=== PATIENT | male | born 1940 | race Caucasian/White ===

== ENCOUNTER 2018-10-17 17:46 | Observation (INO) | payer OTHER ==
[2018-10-17 19:26] LABS: Absolute Lymphocytes (CBC) 1.2 K/uL (0.7-4.9); Absolute Monocytes 0.5 K/uL (0.1-1.3); Absolute Neutrophil 5.4 K/uL (1.8-8.0); Basophils % 0.6 % (0-1.3); Eosinophils % 1.4 % (0-4.4); Hematocrit 43.9 % (39.6-49.0); Lymphocytes % 16.3 % (15.3-44.8); MPV 8.8 fL (7.6-11.3); Monocytes % 7.4 % (3.3-12.3)
[2018-10-17] MEDS ORDERED: NA CHLORIDE 0.9% 1,000 ML ONE (19:27)
[2018-10-17 19:34] LABS: Protime INR 0.99
[2018-10-17 19:56] LABS: ALT/SGPT 23 U/L (12-78); AST/SGOT 18 U/L (15-37); Alkaline Phosphatase 96 U/L (45-117); BUN Blood Urea Nitrogen 28 mg/dL (7-18); Bicarbonate 29 mmol/L (21-32); Bilirubin Direct 0.1 mg/dL (0-0.2); Bilirubin Total 0.4 mg/dL (0.2-1.0); Glucose Level 88 mg/dL (74-106); Lipase 93 U/L (73-393); Magnesium 2.2 mg/dL (1.8-2.4); NT PRO-BNP 66 pg/mL (<450); Potassium 3.7 mmol/L (3.5-5.1); Protein, Total 6.9 g/dL (6.4-8.2); Sodium Level 142 mmol/L (136-145); Troponin (Emerg Dept Use Only) < 0.02 ng/mL (0.0-0.045)
--- NOTE | 2018-10-17 20:04 | ER ---
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 Transition of hb care: patient was not received from another setting of care. Onset of symptoms was October 17, 2018. Risk Assessment: Do you want to hurt yourself or someone else? Patient reports no desire to harm self or others. Care prior to arrival: None. 17:57 Method Of Arrival: Ambulatory 17:57 Acuity: EDY 3 hb 18:53 Initial Sepsis Screen: Does the patient meet any 2 criteria? No. Patient's initial tw2 sepsis screen is negative. Does the patient have a suspected source of infection? No. Patient's initial sepsis screen is negative. Historical: - Allergies: 17:56 No Known Allergies; hb - Home Meds: 17:56 Diltiazem Oral [Active]; Diovan Oral [Active]; Demadex Oral [Active]; Protonix Oral hb [Active]; ezetimibe oral oral [Active]; Flunisolide Nasal [Active]; Bentyl Oral [Active]; Viagra Oral [Active]; Aspirin Oral [Active]; - PMHx: 17:56 Hypertension; Seasonal Allergies; hb - PSHx: 17:56 right knee; left foot; left elbow; prostatectomy; right foot; hb - Immunization history:: Adult Immunizations up to date. - Social history:: Smoking status: Patient/guardian denies using tobacco. - Ebola Screening: : No symptoms or risks identified at this time. - Family history:: not pertinent. Screenin:53 Abuse screen: Denies threats or abuse. Nutritional screening: No deficits noted. tw2 Tuberculosis screening: No symptoms or risk factors identified. Fall Risk Secondary diagnosis (15 points) impaired mobility. Assessment: 18:00 General: Appears in no apparent distress. well groomed, Behavior is calm, cooperative, tw2 appropriate for age. Pain: Denies pain. Neuro: Level of Consciousness is awake, alert, obeys commands, Oriented to person, place, time, situation. Cardiovascular: Reports chest pain, "well i thought it might be some indigestion, so i took a bentyl" Heart tones S1 S2 Patient's skin is warm and dry. Respiratory: Airway is patent Respiratory effort is even, unlabored, Respiratory pattern is regular, symmetrical, Breath sounds are clear bilaterally. GI: Abdomen is round non-distended, Bowel sounds present X 4 quads. : No signs and/or symptoms were reported regarding the genitourinary system. EENT: No signs and/or symptoms were reported regarding the EENT system. Derm: No signs and/or symptoms reported regarding the dermatologic system. Musculoskeletal: Range of motion: intact in all extremities. 18:03 General: Felicitas,Tech at bedside performing EKG at this time.. tw2 18:51 Reassessment: Patient appears in no apparent distress at this time. No changes from tw2 previously documented assessment. Patient and/or family updated on plan of care and expected duration. Pain level reassessed. Patient is alert, oriented x 3, equal unlabored respirations, skin warm/dry/pink. no orders at this time, providers aware. 19:05 General: Appears in no apparent distress. comfortable, Behavior is calm, cooperative, rr5 appropriate for age. Pain: Denies pain. Neuro: Level of Consciousness is awake, alert, obeys commands, Oriented to person, place, time, situation, Appropriate for age. Cardiovascular: Reports palpitations, episodes of Capillary refill < 3 seconds Patient's skin is warm and dry. Respiratory: Airway is patent Respiratory effort is even, unlabored, Respiratory pattern is regular, symmetrical. GI: Abdomen is round non-distended. : No signs and/or symptoms were reported regarding the genitourinary system. : No signs and/or symptoms were reported regarding the genitourinary system. EENT: No signs and/or symptoms were reported regarding the EENT system. 19:05 Derm: No signs and/or symptoms reported regarding the dermatologic system. rr5 Musculoskeletal: Capillary refill < 3 seconds, Range of motion: intact in all extremities. 20:15 Reassessment: Patient appears in no apparent distress at this time. No changes from rr5 previously documented assessment. Patient is alert, oriented x 3, equal unlabored respirations, skin warm/dry/pink. no complaints made. 21:05 Reassessment: Patient appears in no apparent distress at this time. Patient is alert, rr5 oriented x 3, equal unlabored respirations, skin warm/dry/pink. for admission. Patient denies pain at this time. Patient states symptoms have improved. 21:49 Reassessment: seen and examined by dr. akhtar at bedside. rr5 Vital Signs: 17:54 BP 182 / 89; Pulse 74; Resp 20; Temp 98.5; Pulse Ox 100% on R/A; Pain 0/10; hb 19:05 BP 131 / 65; Pulse 62; Resp 17; Temp 99.4; Pulse Ox 99% ; Pain 0/10; rr5 20:14 Weight 117.93 kg; rr5 20:14 BP 140 / 69; Pulse 60; Resp 17; Pulse Ox 98% ; rr5 21:20 BP 114 / 60; Pulse 61; Resp 17; Pulse Ox 98% ; rr5 22:00 BP 133 / 70; Pulse 63; Resp 19; Pulse Ox 99% ; rr5 23:00 BP 141 / 74; Pulse 66; Resp 17; Temp 99.3; Pulse Ox 99% ; rr5 ED Course: 17:47 Patient arrived in ED. rg4 17:47 Ruperto Cates MD is Private Physician. rg4 17:57 Triage completed. hb 17:57 Arm band placed on right wrist. hb 18:03 Gissel Bush, RN is Primary Nurse. tw2 18:35 EKG done, by ED staff, reviewed by Leonidas Chapman MD. mh5 18:36 Patient has correct armband on for positive identification. Placed in gown. Bed in low mh5 position. Call light in reach. Side rails up X 1. Adult w/ patient. Warm blanket given. electron beam machine welder setter on. Pulse ox on. NIBP on. 18:53 Leonidas Chapman MD is Attending Physician. karolina 19:03 EKG completed upon pts arrival to room, Dr. Chapman was given EKG at that time. tw2 19:14 Radiology exam delayed due to IV insertion attempt and/or patient not having az appropriate IV at this time. 19:20 Inserted saline lock: 20 gauge in left antecubital area, using aseptic technique. Blood oe collected. 19:46 XRAY Chest (1 view) In Process Unspecified. EDMS 20:03 Gen Cool MD is Hospitalizing Provider. karolina 23:23 No provider procedures requiring assistance completed. Patient admitted, IV remains in rr5 place. intact, No redness/swelling at site. Administered Medications: 19:30 Drug: NS 0.9% 1000 ml Route: IV; Rate: 125 ml/hr; Site: left antecubital; rr5 23:27 Follow up: IV Status: Infusion continued upon admission rr5 20:23 Drug: Aspirin Chewable Tablet 324 mg Route: PO; rr5 23:26 Follow up: Response: No adverse reaction rr5 20:25 Drug: ProTONIX 40 mg Route: IVP; Site: left antecubital; rr5 23:26 Follow up: Response: No adverse reaction rr5 20:27 Drug: Lovenox 1 mg/kg {Note: 100 units given.} Route: Sub-Q; Site: right lower abdomen; rr5 23:26 Follow up: Response: No adverse reaction rr5 Outcome: 20:04 Decision to Hospitalize by Provider. karolina 23:23 Admitted to Tele accompanied by tech, via stretcher, room 422, with chart, Report rr5 called to [place] 23:23 Condition: stable 23:23 Instructed on the need for admit. 23:44 Patient left the ED. rr5 Signatures: Dispatcher [employer] Leonidas Montano MD MD cha Baxter, Heather, RN RN Gissel Bush RN RN tw2 Rhianna Low rg4 Tony Hernandez Maria Zahra Faye Raymond, RN RN rr5 Corrections: (The following items were deleted from the chart) 20:34 20:27 Lovenox 1 mg/kg Sub-Q in right lower abdomen rr5 rr5
--- NOTE | 2018-10-17 20:04 | EDPHYS ---
Physician Documentation [facility] Name: Victor M Del Toro Age: 78 yrs Sex: Male : 1940 Arrival Date: 10/17/2018 Time: 17:47 Bed 19 Private MD: Ruperto Cates ED Physician Leonidas Chapman HPI: 10/17 20:00 This 78 yrs old Male presents to ER via Ambulatory with complaints of karolina Palpitations. 20:00 The patient presents with a history of irregular heart beat. Context: The symptoms karolina occur at rest. Historical: - Allergies: 17:56 No Known Allergies; hb - Home Meds: 17:56 Diltiazem Oral [Active]; Diovan Oral [Active]; Demadex Oral [Active]; Protonix Oral hb [Active]; ezetimibe oral oral [Active]; Flunisolide Nasal [Active]; Bentyl Oral [Active]; Viagra Oral [Active]; Aspirin Oral [Active]; - PMHx: 17:56 Hypertension; Seasonal Allergies; hb - PSHx: 17:56 right knee; left foot; left elbow; prostatectomy; right foot; hb - Immunization history:: Adult Immunizations up to date. - Social history:: Smoking status: Patient/guardian denies using tobacco. - Ebola Screening: : No symptoms or risks identified at this time. - Family history:: not pertinent. ROS: 20:01 Constitutional: Negative for fever, chills, and weight loss, Eyes: Negative for injury, karolina pain, redness, and discharge, ENT: Negative for injury, pain, and discharge, Neck: Negative for injury, pain, and swelling, Respiratory: Negative for shortness of breath, cough, wheezing, and pleuritic chest pain, Back: Negative for injury and pain, : Negative for injury, bleeding, discharge, and swelling, MS/Extremity: Negative for injury and deformity, Skin: Negative for injury, rash, and discoloration, Neuro: Negative for headache, weakness, numbness, tingling, and seizure, Psych: Negative for depression, anxiety, suicide ideation, homicidal ideation, and hallucinations, Allergy/Immunology: Negative for hives, rash, and allergies, Endocrine: Negative for neck swelling, polydipsia, polyuria, polyphagia, and marked weight changes, Hematologic/Lymphatic: Negative for swollen nodes, abnormal bleeding, and unusual bruising. 20:01 Cardiovascular: Positive for chest pain, palpitations. 20:01 Respiratory: Positive for shortness of breath. 20:01 Abdomen/GI: Positive for abdominal pain, of the epigastric area. Exam: 20:01 Constitutional: This is a well developed, well nourished patient who is awake, alert, karolina and in no acute distress. Head/Face: Normocephalic, atraumatic. Eyes: Pupils equal round and reactive to light, extra-ocular motions intact. Lids and lashes normal. Conjunctiva and sclera are non-icteric and not injected. Cornea within normal limits. Periorbital areas with no swelling, redness, or edema. ENT: Nares patent. No nasal discharge, no septal abnormalities noted. Tympanic membranes are normal and external auditory canals are clear. Oropharynx with no redness, swelling, or masses, exudates, or evidence of obstruction, uvula midline. Mucous membranes moist. Neck: Trachea midline, no thyromegaly or masses palpated, and no cervical lymphadenopathy. Supple, full range of motion without nuchal rigidity, or vertebral point tenderness. No Meningismus. Chest/axilla: Normal chest wall appearance and motion. Nontender with no deformity. No lesions are appreciated. Cardiovascular: Regular rate and rhythm with a normal S1 and S2. No gallops, murmurs, or rubs. Normal PMI, no JVD. No pulse deficits. Respiratory: Lungs have equal breath sounds bilaterally, clear to auscultation and percussion. No rales, rhonchi or wheezes noted. No increased work of breathing, no retractions or nasal flaring. Abdomen/GI: Soft, non-tender, with normal bowel sounds. No distension or tympany. No guarding or rebound. No evidence of tenderness throughout. Back: No spinal tenderness. No costovertebral tenderness. Full range of motion. Male : Normal genitalia with no discharge or lesions. Skin: Warm, dry with normal turgor. Normal color with no rashes, no lesions, and no evidence of cellulitis. MS/ Extremity: Pulses equal, no cyanosis. Neurovascular intact. Full, normal range of motion. Neuro: Awake and alert, GCS 15, oriented to person, place, time, and situation. Cranial nerves II-XII grossly intact. Motor strength 5/5 in all extremities. Sensory grossly intact. Cerebellar exam normal. Normal gait. Psych: Awake, alert, with orientation to person, place and time. Behavior, mood, and affect are within normal limits. Vital Signs: 17:54 BP 182 / 89; Pulse 74; Resp 20; Temp 98.5; Pulse Ox 100% on R/A; Pain 0/10; hb 19:05 BP 131 / 65; Pulse 62; Resp 17; Temp 99.4; Pulse Ox 99% ; Pain 0/10; rr5 20:14 Weight 117.93 kg; rr5 20:14 BP 140 / 69; Pulse 60; Resp 17; Pulse Ox 98% ; rr5 21:20 BP 114 / 60; Pulse 61; Resp 17; Pulse Ox 98% ; rr5 22:00 BP 133 / 70; Pulse 63; Resp 19; Pulse Ox 99% ; rr5 23:00 BP 141 / 74; Pulse 66; Resp 17; Temp 99.3; Pulse Ox 99% ; rr5 MDM: 18:54 Patient medically screened. [facility] 20:02 Data reviewed: vital signs, nurses notes, lab test result(s), EKG, radiologic studies, karolina plain films. 10/17 18:55 Order name: Basic Metabolic Panel; Complete Time: 19:59 [facility] 10/17 18:55 Order name: CBC with Diff; Complete Time: 19:59 [facility] 10/17 18:55 Order name: LFT's; Complete Time: 19:59 [facility] 10/17 18:55 Order name: Magnesium; Complete Time: 19:59 [facility] 10/17 18:55 Order name: NT PRO-BNP; Complete Time: 19:59 [facility] 10/17 18:55 Order name: PT-INR; Complete Time: 19:59 [facility] 10/17 18:55 Order name: Troponin (emerg Dept Use Only); Complete Time: 19:59 [facility] 10/17 18:55 Order name: XRAY Chest (1 view) [facility] 10/17 18:55 Order name: TSH; Complete Time: 19:59 [facility] 10/17 18:55 Order name: Urine Culture [facility] 10/17 18:55 Order name: Lipase; Complete Time: 19:59 [facility] 10/17 23:22 Order name: Urine Dipstick--Ancillary (enter results) ar5 10/17 23:33 Order name: Urine Dipstick-Ancillary EDMS 10/17 18:55 Order name: EKG; Complete Time: 18:56 [facility] 10/17 18:55 Order name: Cardiac monitoring; Complete Time: 19:45 [facility] 10/17 18:55 Order name: EKG - Nurse/Tech; Complete Time: 19:56 [facility] 10/17 18:55 Order name: IV Saline Lock; Complete Time: 19:43 [facility] 10/17 18:55 Order name: Labs collected and sent; Complete Time: 19:44 [facility] 10/17 18:55 Order name: O2 Per Protocol; Complete Time: 19:56 [facility] 10/17 18:55 Order name: O2 Sat Monitoring; Complete Time: 19:45 [facility] 10/17 18:55 Order name: Urine Dipstick-Ancillary (obtain specimen); Complete Time: 19:55 [facility] Administered Medications: 19:30 Drug: NS 0.9% 1000 ml Route: IV; Rate: 125 ml/hr; Site: left antecubital; rr5 23:27 Follow up: IV Status: Infusion continued upon admission rr5 20:23 Drug: Aspirin Chewable Tablet 324 mg Route: PO; rr5 23:26 Follow up: Response: No adverse reaction rr5 20:25 Drug: ProTONIX 40 mg Route: IVP; Site: left antecubital; rr5 23:26 Follow up: Response: No adverse reaction rr5 20:27 Drug: Lovenox 1 mg/kg {Note: 100 units given.} Route: Sub-Q; Site: right lower abdomen; rr5 23:26 Follow up: Response: No adverse reaction rr5 Disposition: 10/17/18 20:04 Hospitalization ordered by Gen Cool for Observation. Preliminary diagnosis are Palpitations, Chest pain, unspecified, Functional dyspepsia, Unspecified kidney failure. - Bed requested for Telemetry/MedSurg (observation). - Status is Observation. rr5 - Condition is Stable. - Problem is new. - Symptoms have improved. UTI on Admission? No Signatures: Dispatcher [employer] EDND Yanet Pugh RN RN mw Anderson, Corey, MD MD cha Baxter, Heather, RN RN hb Roque, Raymond, RN RN rr5 Corrections: (The following items were deleted from the chart) 22:07 20:04 Hospitalization Ordered by Gen Cool MD for Observation. Preliminary mw diagnosis is Palpitations; Chest pain, unspecified; Functional dyspepsia; Unspecified kidney failure. Bed requested for Telemetry/MedSurg (observation). Status is Observation. Condition is Stable. Problem is new. Symptoms have improved. UTI on Admission? No. karolina 23:44 22:07 10/17/2018 20:04 Hospitalization Ordered by Gen Cool MD for Observation. rr5 Preliminary diagnosis is Palpitations; Chest pain, unspecified; Functional dyspepsia; Unspecified kidney failure. Bed requested for Telemetry/MedSurg (observation). Status is Observation. Condition is Stable. Problem is new. Symptoms have improved. UTI on Admission? No. mw
--- NOTE | 2018-10-17 20:05 | RAD REPORT ---
EXAM DESCRIPTION: Bhakti Single View10/17/2018 7:45 pm CLINICAL HISTORY: Chest pain COMPARISON: 2013 FINDINGS: The lungs appear clear of acute infiltrate. The heart is normal size IMPRESSION: No acute abnormalities displayed
[2018-10-17] MEDS ORDERED: ENOXAPARIN 100 MG/ML SYR SQ ONE (20:29)
[2018-10-17] MEDS ORDERED: PANTOPRAZOLE 40 MG INJ ONE (20:29)
[2018-10-17] MEDS ORDERED: ASPIRIN 81 MG CHEWABLE TABLET ONE (20:29)
--- NOTE | 2018-10-17 22:08 | P.HP ---
Certification for Inpatient Patient admitted to: Observation With expected LOS: <2 Midnights Practitioner: I am a practitioner with admitting privileges, knowledge of patient current condition, hospital course, and medical plan of care. Services: Services provided to patient in accordance with Admission requirements found in Title 42 Section 412.3 of the Code of Federal Regulations Patient History Date of Service: 10/17/18 Reason for admission: chest pain History of Present Illness: Mr Del Toro is a 78 years old male with history of HTN, GERD, came to ED complaining of chest pain, starting this morning, getting worse after lunch, radiated to epigastric area, constant, dull, associated with SOB, no nausea or vomiting, no diaphoresis. The patient had a cardiac work up on 2013, including a cath which showed normal coronary arteries. At my encounter, he was on non- distress, still having mild epigastric pain. He also said that at lungh got a soup that was spice, and after that his pain got worse. Initial trop I negative , EKG shows no acute ST-T abnormalities. Allergies Tetanus Vaccines and Toxoid [Tetanus Vaccines & Toxoid] Allergy (Verified 18:06) Anaphylaxis Home medications list reviewed: Yes Home Medications: Aspirin 325 mg PO BEDTIME 03/15/14 Cetirizine HCl [Zyrtec] 10 mg PO DAILY 03/15/14 Dicyclomine HCl [Bentyl] 20 mg PO PRN PRN 03/15/14 Diltiazem HCl [Dilt-Xr] 180 mg PO DAILY 03/15/14 Diphenhydramine [Benadryl*] 2 tab PO BEDTIME 03/15/14 Flunisolide [Nasarel] 1 spray NS DAILY 03/15/14 [place] Eyes 1 tab PO BID 03/15/14 Multivit-Min/FA/Lycopene/Lut [Centrum Silver Tablet] 1 tab PO DAILY 03/15/14 Niacin [Slo-Niacin] 1,000 mg PO BEDTIME 03/15/14 [place]-3 Fatty Acids/Fish Oil [Fish Oil 1,000 mg Softgel] 1 each PO DAILY Pantoprazole Sodium [Protonix] 40 mg PO DAILY 03/15/14 Sildenafil Citrate [Viagra] 100 mg PO PRN 03/15/14 Torsemide [Demadex*] 20 mg PO DAILY 03/15/14 Valsartan [Diovan*] 160 mg PO DAILY 03/15/14 Pantoprazole [Protonix Tab*] 40 mg PO BID #0 tab 03/18/14 - Past Medical/Surgical History Diabetic: No -: htn -: high cholesterol -: prostate ca -: allergies -: total right knee -: left elbow sx -: bilat foot sx -: prostatectomy - Family History Family History: Reviewed- Non-Contributory - Social History Alcohol use: Yes CD- Drugs: No Caffeine use: Yes Place of Residence: Home Review of Systems 10-point ROS is otherwise unremarkable Physical Examination - Physical Exam General: Alert, In no apparent distress HEENT: Atraumatic, PERRLA, Mucous membr. moist/pink, EOMI, Sclerae nonicteric Neck: Supple, 2+ carotid pulse no bruit, No LAD, Without JVD or thyroid abnormality Respiratory: Clear to auscultation bilaterally, Normal air movement Cardiovascular: Regular rate/rhythm, Normal S1 S2 Gastrointestinal: Normal bowel sounds, No tenderness Musculoskeletal: No tenderness Integumentary: No rashes Neurological: Normal speech, Normal strength at 5/5 x4 extr, Normal tone, Normal affect Lymphatics: No axilla or inguinal lymphadenopathy - Studies Laboratory Data (last 24 hrs) 10/17/18 19:16: PT 11.7, INR 0.99 10/17/18 19:16: WBC 7.2, Hgb 14.7, Hct 43.9, Plt Count 195 10/17/18 19:16: Sodium 142, Potassium 3.7, BUN 28 H, Creatinine 1.38 H, Glucose 88, Magnesium 2.2, Total Bilirubin 0.4, AST 18, ALT 23, Alkaline Phosphatase 96 , Lipase 93 Assessment and Plan - Problems (Diagnosis) (1) HTN (hypertension) Current Visit: Yes Status: Acute Qualifiers: Hypertension type: essential hypertension Qualified Code(s): I10 - Essential (primary) hypertension (2) GERD (gastroesophageal reflux disease) Current Visit: Yes Status: Acute Qualifiers: Esophagitis presence: esophagitis presence not specified Qualified Code(s) : K21.9 - Gastro-esophageal reflux disease without esophagitis (3) Chest pain Current Visit: No Status: Acute Qualifiers: Chest pain type: unspecified Qualified Code(s): R07.9 - Chest pain, unspecified - Plan Will admit the patient under observation due to atypical chest pain. Differential diagnosis include GERD due to clinical presentation. Will order serial trop I, and EKG, ECHO. Will consult cardiology for evaluation and recommendations. - Advance Directives Does patient have a Living Will: No Does patient have a Durable POA for Healthcare: Yes - Code Status/Comfort Care Code Status Assessed: Yes Code Status: Full Code
[2018-10-17 23:32] LABS: Urine Blood TRACE (NEG); Urine Glucose NEGATIVE (NEG); Urine Protein NEGATIVE (NEG); Urine Specific Gravity 1.025 (1.005-1.030); Urine pH 5.5 (5.0-7.0)
[2018-10-17] MEDS ORDERED: SODIUM CHLORIDE 0.9% 10ML INJ IV PRN (23:38)
[2018-10-17] MEDS ORDERED: ACETAMINOPHEN 500 MG TAB PO PRN (23:38)
[2018-10-18 00:01] LABS: Absolute Monocytes 0.4 K/uL (0.1-1.3); Absolute Neutrophil 4.2 K/uL (1.8-8.0); Basophils % 0.9 % (0-1.3); Eosinophils % 1.5 % (0-4.4); Lymphocytes % 29.4 % (15.3-44.8); MPV 9.2 fL (7.6-11.3); Monocytes % 6.4 % (3.3-12.3); RBC Red Blood Cell Count 5.02 M/uL (4.33-5.43)
[2018-10-18 00:18] LABS: BUN Blood Urea Nitrogen 27 mg/dL (7-18); Bicarbonate 22 mmol/L (21-32); Glucose Level 100 mg/dL (74-106); HDL Cholesterol 41 mg/dL (40-60); LDL Cholesterol, Calculated 131 (<130); Potassium 3.6 mmol/L (3.5-5.1); Sodium Level 144 mmol/L (136-145); Troponin I < 0.02 ng/mL (0.0-0.045)
[2018-10-18 00:39] VITALS: O2SAT 99; BMI 38.4
--- NOTE | 2018-10-18 07:49 | EKG ---
Test Date: 2018-10-17 Test Time: 18:06:55 Credit Rating Checker: JERMAINE MEASUREMENT RESULTS: Intervals: Rate: 63 CA: 184 QRSD: 94 QT: 424 QTc: 433 Spring: P: 37 CA: 184 QRS: 8 T: 27 INTERPRETIVE STATEMENTS: Normal sinus rhythm Normal ECG Compared to ECG 03/16/2014 07:41:57 Sinus bradycardia no longer present Electronically Signed On 10-18-18 07:48:30 TECHNICAL SERVICES COORDINATOR by Sarabjit Webb
[2018-10-18] MEDS ORDERED: PANTOPRAZOLE 40 MG INJ IVP SCH (09:00)
[2018-10-18] MEDS ORDERED: ASPIRIN EC 81 MG TAB PO SCH (09:00)
[2018-10-18] MEDS ORDERED: ENOXAPARIN 40 MG/0.4 ML SQ SCH (09:00)
[2018-10-18] MEDS ORDERED: DICYCLOMINE HCL 20 MG PO PRN (11:04)
[2018-10-18] MEDS ORDERED: SILDENAFIL CITRATE 100 MG PO SCH (11:15)
--- NOTE | 2018-10-18 11:46 | ECHO ---
HEIGHT: 5 ft 9 in WEIGHT: 260 lb 4.8 oz DATE OF STUDY: 10/18/[address]: Gen Hernandez MD 2-DIMENSIONAL: YES M.MODE: YES DOPPLER: YES COLOR FLOW: YES TDS: NO PORTABLE: NO DEFINITY: NO BUBBLE STUDY: NO DIAGNOSIS: CHEST PAIN CARDIAC HISTORY: CATHERIZATION: NO SURGERY: NO PROSTHETIC VALVE: NO PACEMAKER: NO MEASUREMENTS (cm) DIASTOLIC (NORMALS) SYSTOLIC (NORMALS) IVSd 1.1 (0.6-1.2) LA Diam 4.0 (1.9-4.0) LVEF 63% LVIDd 4.9 (3.5-5.7) LVIDs 3.2 (2.0-3.5) %FS 34% LVPWd 1.2 (0.6-1.2) Ao Diam 3.2 (2.0-3.7) 2 DIMENSIONAL ASSESSMENT: RIGHT ATRIUM: NORMAL LEFT ATRIUM: NORMAL RIGHT VENTRICLE: NORMAL LEFT VENTRICLE: NORMAL TRICUSPID VALVE: NORMAL MITRAL VALVE: NORMAL PULMONIC VALVE: NORMAL AORTIC VALVE: NORMAL PERICARDIAL EFFUSION: NONE AORTIC ROOT: NORMAL LEFT VENTRICULAR WALL MOTION: NORMAL DOPPLER/COLOR FLOW: TRACE MITRAL AND AORTIC REGURGITATION. COMMENTS: NORMAL 2D ECHOCARDIOGRAM. TRACE MITRAL AND AORTIC REGURGITATION. TECHNOLOGIST: Amelia GOODSON
[2018-10-18 12:48] VITALS: BP 120/65; TEMP 98.4
--- NOTE | 2018-10-18 16:05 | CON ---
Chief Complaint: Palpitations. History Of Present Illness: Mr. Del Toro was in his usual state of health. He recalls eating some s picy food, feeling nauseated, and then the next day he noticed, as he sat still, he felt his heart fl uttering. He put himself on some kind of a monitor that monitors O2 saturation and it said his heart rate was fluctuating a lot. Apparently, the highest it got was in the high 90s and the lowest in th e 50s, but it was changing rapidly. All of that was gone by the time he got to the emergency room. Now, he feels fine. Since he has been in the hospital, he has had normal cardiac enzymes, normal blo od tests. Mr. Del Toro has dyslipidemia and hypertension. We were concerned, he had a coronary hear t disease, but had a cardiac cath that was just a few years ago that was normal. He was in February 2014 . Medications: Outpatient medications have been Benadryl, aspirin, fish oil, multivitamins, cetirizine , Viagra, dicyclomine, Protonix, Desyrel, valsartan, torsemide, diltiazem, and ezetimibe. He is intolerant to statin drugs, but he has good cholesterol control on ezetimibe. Social History: He uses no tobacco. Physical Examination: General: 5 feet 9 inches, 260 pounds. Lungs: Clear. Neck: Carotids, no bruit. Heart: Within normal limits. Extremities: Normal. Diagnostic Data: His EKG does not show infarction, injury, or ischemia. He is in normal sinus rhyth m. Impression: The patient had some kind of an arrhythmia, but may have been frequent premature ventric ular contractions that have been atrial fibrillation. I think at this point, we are unlikely to see it again just by holding onto him, so I would recommend he be discharged and put an event monitor on. If that fails to demonstrate the arrhythmia and he has recurrent arrhythmia, we could consider impl anting a the LINQ device to monitor his rhythm for 2 years. I am suspicious he has atrial fibrillati on, but we have no proof, so I would not be able to safely give anticoagulation or antiarrhythmic butch gs at this point. RADU/LOW Voice ID: [id number] Report ID: [id number]
[2018-10-18] MEDS ORDERED: EZETIMIBE 10 MG TAB PO SCH (21:00)
--- NOTE | 2018-10-19 01:30 | DS ---
Date of Discharge: 10/18/2018 [place] Mold Maker: Dr. Webb with Cardiology. Discharge Diagnoses: 1.Chest pain. Acute coronary syndrome ruled out. 2.Essential hypertension, stable. 3.Gastroesophageal reflux disease without esophagitis. 4.Mixed hyperlipidemia. 5.History of prostate cancer. 6.Obesity, body mass index 38. Hospital Course: The patient is a 78-year-old male who comes in due to chest pain. The patient does report some recent stress. Also reports making soup that was very spicy and having multiple episode s of acid reflux. The patient came in to the ER for further evaluation. He was admitted to rule out acute coronary syndrome. Cardiac enzymes were negative x3. His EKG did not show any significant ch nguyen. No ST elevation. Echocardiogram showed EF of 63%. There was trace mitral and aortic regurgit ation. The patient was seen by Dr. Webb who cleared the patient for discharge. The patient was th en discharged home in a stable condition. Activity: As tolerated. Medications: As per medication reconciliation list. Followup: Follow up with primary care physician in 2 to 3 days. Follow up with client support coordinator, Dr. Bennett perez, in 1 week for Holter monitor placement. Return to ER for worsening condition. Diet: Heart healthy. Physical Examination: General: Awake, alert, and oriented x3. No acute distress. Elderly male, obese. CV: S1, S2. Regular rate and rhythm. Peripheral pulses present. Respiratory: Moving air well bilaterally. No wheezing. Gastrointestinal: Abdomen is soft, nontender, nondistended. Positive bowel sounds. Extremities: No clubbing, cyanosis, or edema. Neurologic: Nonfocal. SA/MODL Voice ID: [id number] Report ID: [id number]
[2018-10-19] MEDS ORDERED: CETIRIZINE HCL 5 MG TABLET PO SCH (09:00)
[2018-10-19] MEDS ORDERED: FLUNISOLIDE NS SCH (09:00)
[2018-10-19] MEDS ORDERED: VALSARTAN 80 MG TAB PO SCH (09:00)
[2018-10-19] MEDS ORDERED: DILTIAZEM HCL 180 MG SR CAP PO SCH (09:00)
[2018-10-19] MEDS ORDERED: TORSEMIDE 20 MG TAB PO SCH (09:00)
== END 2018-10-18 13:58 | disposition home or self-care (01) ==
LOC: ER 17:46 → ERHOLD 22:00 → 4TH 23:24
PROVIDERS: ADMIT Internal Medicine; ATTEND Internal Medicine
DX: R07.9 Chest pain, unspecified (principal); I10 Essential (primary) hypertension; K21.9 Gastro-esophageal reflux disease without esophagitis; E78.2 Mixed hyperlipidemia; Z85.46 Personal history of malignant neoplasm of prostate; E66.9 Obesity, unspecified; Z68.38 Body mass index [BMI] 38.0-38.9, adult; Z88.7 Allergy status to serum and vaccine
CPT/HCPCS: 36415; 71045; 80048 ×2; 80061; 80076; 81003; 83690; 83735; 83880; 84443; 84484 ×3; 85025 ×2; 85610; 87086; 87088; 93005; 93306; 96361; 96372; 96374; 99285; C9113 ×2; G0378; G0379; J1650 ×2; J7030

== ENCOUNTER 2020-07-12 14:03 | Emergency (ER) | payer OTHER ==
--- OUTSIDE RECORDS SUMMARY | 2020-07-12 14:06 | XMS REPORT | Summary of Care ---
:1940 Author Organization [facility] [place] [address] Care Team Providers Name Role Phone MD Darryn Primary Care Provider Reason for Visit Reason Comments Skin Check Encounter Details Date Type Department Care Team Description 06/05/2020 Office Visit [facility] Stewart Jeter i, MD Skin Check Dermatology 1975 [address] 1975 [address] [facility] [address] [place] [address] [place] [address] [phone] Allergies No Known Allergiesdocumented as of this encounter (statuses as of 06/05/2020) Medications Medication Sig Dispensed Refills Start Date End Date Status sildenafil citrate Use as directed. 20 Tab 3 12/14/2010 Active (VIAGRA) 100 MG tablet valsartan (DIOVAN) 160 Take 160 mg by 0 Active MG tablet mouth daily. torsemide (DEMADEX) 20 Take 20 mg by 0 Active MG tablet mouth daily. Pantoprazole Sodium Take by mouth. 0 Active (PROTONIX) 40 MG PACK flunisolide (NASALIDE) Inhale 2 Sprays 0 Active 25 MCG/ACT (0.025%) by nose every 12 nasal spray hours. diltiazem (CARDIZEM CD) TAKE ONE CAPSULE 3 7 Active 180 MG ER capsule BY MOUTH EVERY DAY dicyclomine (BENTYL) 20 Take 20 mg by 0 Active MG tablet mouth every 6 hours. cetirizine,ZYRTEC, Take 10 mg by 0 Active (ZYRTEC ALLERGY) 10 MG mouth once. tablet Multiple Take by mouth. 0 Acti ve Vitamins-Minerals (CENTRUM SILVER) TABS Harmony-3 Fatty Acids Take by mouth. 0 Active (FISH OIL) 1000 MG CAPS Aspirin (ASPIR-81) 81 Take by mouth. 0 Active MG TBEC diphenhydrAMINE Take 25 mg by 0 Active (BENADRYL) 25 MG tablet mouth every 6 hours as needed for Sleep. ketoconazole (NIZORAL) Apply topically 60 g 3 06/21/2018 Active 2 % creamIndications: twice a day as Dermatitis seborrheica needed documented as of this encounter (statuses as of 06/05/2020) Active Problems Problem Noted Date Prostate cancer (HCCode) 06/21/2011 documented as of this encounter (statuses as of 06/05/2020) Social History Tobacco Use Types Packs/Day Years Used Date Former Smoker Cigarettes Smokeless Tobacco: Never Used Comments: pt. quit 39 yrs. ago Alcohol Use Drinks/Week oz/Week Comments Yes Sex Assigned at Date Recorded Not on file COVID-19 Exposure Response Date Recorded In the last month, have you been in contact with No / Unsure 06/02/2020 11:38 AM CDT someone who was confirmed or suspected to have Coronavirus / COVID-19? documented as of this encounter Last Filed Vital Signs Vital Sign Reading Time Taken Comments Blood Pressure 146/71 06/05/2020 3:16 PM CDT Pulse 65 06/05/2020 3:16 PM CDT Temperature - - Respiratory Rate - - Oxygen Saturation - - Inhaled Oxygen Concentration - - Weight 102.1 kg (225 lb) 06/05/2020 3:16 PM CDT Height 175.3 cm (5' 9") 06/05/2020 3:16 PM CDT Body Mass Index 33.23 06/05/2020 3:16 PM CDT documented in this encounter Progress Notes Stewart Soto MD - 06/05/2020 3:30 PM CDT Name: Victor M Del Toro Date: 06/05/20 Chief Complaint: Chief Complaint Patient presents with Skin Check HPI: Victor M Del Toro is a 79 y.o. male who presents for skin check. He has a lesion on his right cheek that itches without bleeding or pain. The patient otherwise denies any other skin-related concerns anddenies any other new or changing or concerning skin lesions. PMH: No personal history of skin cancer [place] Mildly dysplastic nevus FH: Positive for family history of skin cancer: brother (unsure of the type) Medications: Current Outpatient Medications: Aspirin (ASPIR-81) 81 MG TBEC, Take by mouth., Disp: , Rfl: cetirizine,ZYRTEC, (ZYRTEC ALLERGY) 10 MG tablet, Take 10 mg by mouth once., Disp: , Rfl: dicyclomine (BENTYL) 20 MG tablet, Take 20 mg by mouth every 6 hours., Disp: , Rfl: diltiazem (CARDIZEM CD) 180 MG ER capsule, TAKE ONE CAPSULE BY MOUTH EVERY DAY, Disp: , Rfl: 3 diphenhydrAMINE (BENADRYL) 25 MG tablet, Take 25 mg by mouth every 6 hours as needed for Sleep., Disp: , Rfl: flunisolide (NASALIDE) 25 MCG/ACT (0.025%) nasal spray, Inhale 2 Sprays by nose every 12 hours., Disp: , Rfl: ketoconazole (NIZORAL) 2 % cream, Apply topically twice a day as needed, Disp: 60 g, Rfl: 3 Multiple Vitamins-Minerals (CENTRUM SILVER) TABS, Take by mouth., Disp: , Rfl: Harmony-3 Fatty Acids (FISH OIL) 1000 MG CAPS, Take by mouth., Disp: , Rfl: Pantoprazole Sodium (PROTONIX) 40 MG PACK, Take by mouth., Disp: , Rfl: sildenafil citrate (VIAGRA) 100 MG tablet, Use as directed., Disp: 20 Tab, Rfl: 3 torsemide (DEMADEX) 20 MG tablet, Take 20 mg by mouth daily., Disp: , Rfl: valsartan (DIOVAN) 160 MG tablet, Take 160 mg by mouth daily., Disp: , Rfl: ROS: Constitutional: (negative) for fevers, (negative) for chills Skin: (negative) for rash, (negative) for pruritus Physical Exam: Vitals: Blood pressure 146/71, pulse 65, height 5' 9" (1.753 m), weight 225 lb (102.1 kg). Constitutional: well developed, well nourished, not diaphoretic, not distressed HEENT: normocephalic, atraumatic Neurologic: alert and oriented. Normal mood and affect. Skin: warm and dry Right posterior shoulder: two toned brown macule with peripheral hypopigmentation and scar like appearance Rough macules on cheeks and forehead Stuck-on papules on cheeks Healed scar on lower back General skin exam was performed including skin exam of scalp, neck, face, back, chest, abdomen, bilateral arms, forearms, hands, thighs, legs, feet, soles (patient deferred skin exam of buttocks, inguinal folds, genital area). Assessment and Plan: 1. Neoplasm of uncertain behavior of skin (right posterior shoulder): atypical nevus, rule out melanoma - The findings were discussed with the patient. A skin biopsy was recommended for further evaluationand the patient agreed to proceed. Risks, including scarring, infection, and bleeding were discussed. The patient provided informed written consent. Time-out was performed to confirm the correct patient, procedure, and site. The biopsy site was wiped with alcohol and anesthestized with lidocaine with epinephrine. A tangential biopsy was performed and hemostasis was achieved using aluminum chloride. Dressing was applied. Wound care instructions were discussed with the patient and written instructionswere provided. The patient tolerated the procedure well. The patient will be notified of the pathology results. 2. Actinic keratosis (face) - I discussed with patient that actinic keratoses are pre-cancerous skin lesions and a certain smallpercentage may progress to non-melanoma skin cancers. I recommended treatment of actinic keratoses for this reason. Treatment options discussed. Given the limited number of lesions, and after discussing the risks and benefits, will proceed with liquid nitrogen cryotherapy. - Cryotherapy was performed using [id number] cycle on 9 lesions. Prior to cryotherapy, the risks including pain, erythema, swelling, blistering, crusting, scarring, and discoloration were discussed with the patient, who verbalized understanding. The patient tolerated the procedure well. 3. Seborrheic keratosis - This is benign appearing. Reassurance provided. 4. History of dysplastic nevus - No evidence of recurrence. - I recommended regular self skin exams and follow up in clinic with any concerning lesions. Return to clinic in 12 months or sooner as needed. Stewart Soto MD We are following the [facility] Board of Medical Examiners guideline in safely seeing patient during the COVID-19 Pandemic, which include: 1. A mask must be worn by both the patient and physician or the physicians delegate when in proximity of the patient (meaning less than a 6-foot distance between the patient and the physician or thephysicians delegate); 2. Everyone must follow policies that the physician, medical and healthcare practice, or facility has in place regarding COVID-19 screening and testing and/or screening patients; 3. Before any patient encounter, patients must be screened for potential symptoms of COVID-19 or verified they were previously screened within last 20 days; and 4. That any medical procedure or surgery involving the mucous membranes, including the respiratory tract, with a high risk of aerosol transmission, the minimum safety equipment used by a physician or physicians delegate should include N95 masks or an equivalent protection from aerosolized particlesand face wiley documented in this encounter Plan of Treatment Name Type Priority Associated Diagnoses Order S chedule MS TANGENTIAL BIOPSY MS Charge Routine Neoplasm of uncertai n Ordered: 06/05/2020 SKIN SINGLE LESION behavior of skin MS DESTRUC MS Charge Routine Actinic keratosis Ordered: 1 PREMALIGNANT, FIRST LESION(81651) MS DESTRUC MS Charge Routine Actinic keratosis Ordered: 1 PREMALIGNANT,2-14 LESIONS(86694) Health Maintenance Due Date Last Done Comments TETANUS SHOT (ADULT) 1956 BMI FOLLOW UP PLAN 1959 HEPATITIS C SCREENING 1959 ZOSTER VACCINE (1 of 2) 1991 FALL SCREEN 2006 PNEUMOVAX >=65 (PPSV23) 2006 MEDICARE AWV (Initial) 08/29/2013 FLU VACCINE > 6 MONTHS 03/29/2020 documented as of this encounter Results Not on filedocumented in this encounter Visit Diagnoses Diagnosis Neoplasm of uncertain behavior of skin - Primary Actinic keratosis Seborrheic keratosis Other seborrheic keratosis History of dysplastic nevus Personal history of diseases of skin and subcutaneous tissue documented in this encounter Insurance Payer Benefit Plan / Subscriber ID Effective Dates Phone Addre ss Type Group [employer]AN PPO [id number] 2013-Present [id number] [place] [address] documented as of this encounter
--- NOTE | 2020-07-12 15:20 | RAD REPORT ---
EXAM DESCRIPTION: CT - Head Brain Wo Cont - 07/12/2020 3:12 pm CLINICAL HISTORY: Headache COMPARISON: None. TECHNIQUE: Computed axial tomography of the head was obtained. IV contrast was not requested. All CT scans are performed using dose optimization technique as appropriate and may include automated exposure control or mA/KV adjustment according to patient size. FINDINGS: An intracranial bleed is not seen . The ventricles are normal in caliber. No extra-axial fluid collection is noted. Fluid within the sinuses/ mastoids is not seen. IMPRESSION: No acute intracranial abnormality is seen. If patient's symptoms persist MRI of the bra in would be recommended.
--- NOTE | 2020-07-12 15:51 | RAD REPORT ---
EXAM DESCRIPTION: Bhakti Single View07/12/2020 3:36 pm CLINICAL HISTORY: Hypertension COMPARISON: 2018 FINDINGS: The lungs appear clear of acute infiltrate. The heart is borderline enlarged IMPRESSION: No acute abnormalities displayed
[2020-07-12 15:59] LABS: Absolute Lymphocytes (CBC) 1.2 K/uL (0.7-4.9); Basophils % 0.5 % (0-1.3); Hematocrit 42.7 % (39.6-49.0); Lymphocytes % 20.2 % (15.3-44.8); MPV 8.8 fL (7.6-11.3); Protime INR 0.93; RBC Red Blood Cell Count 4.94 M/uL (4.33-5.43)
[2020-07-12 16:17] LABS: ALT/SGPT 22 U/L (12-78); AST/SGOT 17 U/L (15-37); Albumin 3.9 g/dL (3.4-5.0); Alkaline Phosphatase 90 U/L (45-117); BUN Blood Urea Nitrogen 20 mg/dL (7-18); Bicarbonate 28 mmol/L (21-32); Bilirubin Direct < 0.1 mg/dL (0-0.2); Bilirubin Total 0.5 mg/dL (0.2-1.0); Glucose Level 90 mg/dL (74-106); Magnesium 2.1 mg/dL (1.8-2.4); NT PRO-BNP 100 pg/mL (<450); Potassium 3.8 mmol/L (3.5-5.1); Sodium Level 143 mmol/L (136-145); Troponin (Emerg Dept Use Only) < 0.02 ng/mL (0.0-0.045)
--- NOTE | 2020-07-12 17:24 | EDPHYS ---
Physician Documentation [facility] Name: Victor M Del Toro Age: 80 yrs Sex: Male : 1940 Arrival Date: 07/12/2020 Time: 14:04 Bed 15 Private MD: ED Physician Luis Felipe Rdz HPI: 07/12 14:55 This 80 yrs old Male presents to ER via Ambulatory with complaints of High pm1 Blood Pressure, Headache. 14:55 The patient has elevated blood pressure and discovered this at home. Onset: The pm1 symptoms/episode began/occurred ongoing for multiple months but had a headache today 10/08 with his elevated blood pressure. Modifying factors: The symptoms are aggravated by stressors. in April. Associated signs and symptoms: Pertinent negatives: chest pain, dizziness, nausea, vomiting, weakness, shortness of breath. Severity of symptoms: in the emergency department the blood pressure is improved. The patient has experienced similar episodes in the past, Dr. Scott has been adjusting his blood pressure medications since November of this year. Historical: - Allergies: 14:35 No Known Allergies; jd3 - PMHx: 14:35 Hypertension; seasonal allergies; High Cholesterol; jd3 - PSHx: 14:35 left foot; right foot; right knee; prostatectomy; left elbow; jd3 - Immunization history:: Adult Immunizations up to date. - Social history:: Smoking status: Patient/guardian denies using tobacco, but has a distant history of tobacco abuse. ROS: 14:55 Constitutional: Negative for fever, chills, and weight loss, Cardiovascular: Negative pm1 for chest pain, palpitations, and edema, Respiratory: Negative for shortness of breath, cough, wheezing, and pleuritic chest pain, Back: Negative for injury and pain, MS/Extremity: Negative for injury and deformity, Skin: Negative for injury, rash, and discoloration. 14:55 Neuro: Positive for headache. 14:55 All other systems are negative. Exam: 14:55 Constitutional: This is a well developed, well nourished patient who is awake, alert, pm1 and in no acute distress. Head/Face: Normocephalic, atraumatic. 14:55 Neck: Trachea midline, no thyromegaly or masses palpated, and no cervical lymphadenopathy. Supple, full range of motion without nuchal rigidity, or vertebral point tenderness. No Meningismus. 14:55 Cardiovascular: Regular rate and rhythm with a normal S1 and S2. No gallops, murmurs, or rubs. Normal PMI, no JVD. No pulse deficits. Respiratory: Lungs have equal breath sounds bilaterally, clear to auscultation and percussion. No rales, rhonchi or wheezes noted. No increased work of breathing, no retractions or nasal flaring. 14:55 Skin: Warm, dry with normal turgor. Normal color with no rashes, no lesions, and no evidence of cellulitis. MS/ Extremity: Pulses equal, no cyanosis. Neurovascular intact. Full, normal range of motion. 14:55 Eyes: Exam is negative for Extraocular movements: no acute changes, Conjunctiva: normal. 14:55 Abdomen/GI: Exam negative for acute changes, Inspection: abdomen appears normal, Palpation: abdomen is soft and non-tender, in all quadrants. 14:55 Neuro: Orientation: is normal, Mentation: is normal, Cranial nerves: CN II- XII are normal as tested, Motor: is normal, moves all fours. Vital Signs: 14:35 BP 180 / 78; Pulse 69; Resp 17 S; Temp 98.4(O); Pulse Ox 100% on R/A; Weight 106.59 kg jd3 (R); Height 5 ft. 9 in. (175.26 cm) (R); Pain 2/10; 15:35 BP 180 / 75; Pulse 57; Resp 16 S; Pulse Ox 100% on R/A; ca1 16:30 BP 168 / 55; Pulse 56; Resp 17 S; Pulse Ox 98% on R/A; ca1 17:30 BP 159 / 57; Pulse 53; Resp 18 S; Pulse Ox 99% on R/A; ca1 14:35 Body Mass Index 34.70 (106.59 kg, 175.26 cm) jd3 MDM: 14:43 Patient medically screened. pm1 17:22 Data reviewed: vital signs. Data interpreted: Pulse oximetry: on room air is 100 %. pm1 Interpretation: normal. Counseling: I had a detailed discussion with the patient and/or guardian regarding: the historical points, exam findings, and any diagnostic results supporting the discharge/admit diagnosis, lab results, radiology results, the need for outpatient follow up, Dr. Scott for further blood pressure management and to stop using the salt shaker for all his food, to return to the emergency department if symptoms worsen or persist or if there are any questions or concerns that arise at home. 07/12 14:55 Order name: Basic Metabolic Panel; Complete Time: 16:48 pm1 07/12 14:55 Order name: CBC with Diff; Complete Time: 16:48 pm1 07/12 14:55 Order name: LFT's; Complete Time: 16:48 pm1 07/12 14:55 Order name: Magnesium; Complete Time: 16:48 pm1 07/12 14:55 Order name: NT PRO-BNP; Complete Time: 16:48 pm1 07/12 14:55 Order name: PT-INR; Complete Time: 16:48 pm1 07/12 14:55 Order name: Troponin (emerg Dept Use Only); Complete Time: 16:48 pm1 07/12 14:55 Order name: XRAY Chest (1 view); Complete Time: 15:57 pm1 07/12 14:55 Order name: EKG; Complete Time: 14:55 pm1 07/12 14:55 Order name: Cardiac monitoring; Complete Time: 15:58 pm1 07/12 14:55 Order name: EKG - Nurse/Tech; Complete Time: 16:06 pm1 07/12 14:55 Order name: IV Saline Lock; Complete Time: 15:58 pm1 07/12 14:55 Order name: Labs collected and sent; Complete Time: 15:58 pm1 07/12 14:55 Order name: CT Head Brain wo Cont; Complete Time: 15:41 pm1 07/12 14:55 Order name: O2 Per Protocol; Complete Time: 15:58 pm1 07/12 14:55 Order name: O2 Sat Monitoring; Complete Time: 15:58 pm1 Administered Medications: No medications were administered Disposition: 18:05 Co-signature as Attending Physician, Luis Felipe Rdz MD. rn Disposition: 07/12/20 17:24 Discharged to Home. Impression: Essential (primary) hypertension, Headache. - Condition is Stable. - Discharge Instructions: General Headache Without Cause, Hypertension, How to Take Your Blood Pressure, [id number], DASH Eating Plan, Managing Your Hypertension. - Medication Reconciliation Form, Thank You Letter, Antibiotic Education, Prescription Opioid Use form. - Follow up: Emergency Department; When: As needed; Reason: Worsening of condition. Follow up: Private Physician; When: 2 - 3 days; Reason: Recheck today's complaints, Continuance of care, Re-evaluation by your physician. - Problem is new. - Symptoms have improved. Signatures: Dispatcher [employer] EDMS Luis Felipe Rdz MD MD rn Naveen Kerr, MANAGER AUDIT MANAGER AUDIT pm1 Zach Pierre RN RN jd3 Jessie Cooley RN RN ca1 Corrections: (The following items were deleted from the chart) 17:39 17:24 07/12/2020 17:24 Discharged to Home. Impression: Essential (primary) ca1 hypertension; Headache. Condition is Stable. Forms are Medication Reconciliation Form, Thank You Letter, Antibiotic Education, Prescription Opioid Use. Follow up: Emergency Department; When: As needed; Reason: Worsening of condition. Follow up: Private Physician; When: 2 - 3 days; Reason: Recheck today's complaints, Continuance of care, Re-evaluation by your physician. Problem is new. Symptoms have improved. pm1
--- NOTE | 2020-07-12 17:24 | ER ---
Nurse's Notes [facility] Name: Victor M Del Toro Age: 80 yrs Sex: Male : 1940 Arrival Date: 07/12/2020 Time: 14:04 Bed 15 Private MD: Diagnosis: Essential (primary) hypertension;Headache Presentation: 07/12 14:31 Chief complaint: Patient states: "I lost my recently so I am having stress in my jd3 life. I have been dealing with some head pressure and I took my blood pressures and they have been high with 200's systolics.". Coronavirus screen: At this time, the client does not indicate any symptoms associated with coronavirus-19. Ebola Screen: Patient negative for fever greater than or equal to 101.5 degrees Fahrenheit, and additional compatible Ebola Virus Disease symptoms. Initial Sepsis Screen: Does the patient meet any 2 criteria? No. Patient's initial sepsis screen is negative. Does the patient have a suspected source of infection? No. Patient's initial sepsis screen is negative. Risk Assessment: Do you want to hurt yourself or someone else? Patient reports no desire to harm self or others. Onset of symptoms was July 09, 2020. 14:31 Method Of Arrival: Ambulatory jd3 14:31 Acuity: EDY 3 jd3 Historical: - Allergies: 14:35 No Known Allergies; jd3 - PMHx: 14:35 Hypertension; seasonal allergies; High Cholesterol; jd3 - PSHx: 14:35 left foot; right foot; right knee; prostatectomy; left elbow; jd3 - Immunization history:: Adult Immunizations up to date. - Social history:: Smoking status: Patient/guardian denies using tobacco, but has a distant history of tobacco abuse. Screenin:44 Abuse screen: Denies threats or abuse. Denies injuries from another. Nutritional ca1 screening: No deficits noted. Tuberculosis screening: No symptoms or risk factors identified. Fall Risk IV access (20 points). Assessment: 14:44 General: Appears in no apparent distress. comfortable, Behavior is calm, cooperative, ca1 appropriate for age. Pain: Complains of pain in occipital area and base of the skull Pain currently is 4 out of 10 on a pain scale. Quality of pain is described as pressure, Pain began this morning. Neuro: Level of Consciousness is awake, alert, obeys commands, Oriented to person, place, time, situation. Cardiovascular: Heart tones S1 S2 present Capillary refill < 3 seconds Patient's skin is warm and dry. Rhythm is sinus bradycardia. Respiratory: Airway is patent Respiratory effort is even, unlabored, Respiratory pattern is regular, symmetrical, Breath sounds are clear bilaterally. GI: Abdomen is round non-distended, Bowel sounds present X 4 quads. Abd is soft and non tender X 4 quads. : No signs and/or symptoms were reported regarding the genitourinary system. EENT: No signs and/or symptoms were reported regarding the EENT system. Derm: Skin is intact, is healthy with good turgor, Skin is pink, warm \\T\\ dry. Musculoskeletal: Circulation, motion, and sensation intact. Capillary refill < 3 seconds. 15:45 Reassessment: Patient appears in no apparent distress at this time. Patient and/or ca1 family updated on plan of care and expected duration. Pain level reassessed. Patient is alert, oriented x 3, equal unlabored respirations, skin warm/dry/pink. 16:40 Reassessment: Patient appears in no apparent distress at this time. Patient and/or ca1 family updated on plan of care and expected duration. Pain level reassessed. Patient is alert, oriented x 3, equal unlabored respirations, skin warm/dry/pink. 17:37 Reassessment: Patient appears in no apparent distress at this time. Patient is alert, ca1 oriented x 3, equal unlabored respirations, skin warm/dry/pink. Vital Signs: 14:35 BP 180 / 78; Pulse 69; Resp 17 S; Temp 98.4(O); Pulse Ox 100% on R/A; Weight 106.59 kg jd3 (R); Height 5 ft. 9 in. (175.26 cm) (R); Pain 2/10; 15:35 BP 180 / 75; Pulse 57; Resp 16 S; Pulse Ox 100% on R/A; ca1 16:30 BP 168 / 55; Pulse 56; Resp 17 S; Pulse Ox 98% on R/A; ca1 17:30 BP 159 / 57; Pulse 53; Resp 18 S; Pulse Ox 99% on R/A; ca1 14:35 Body Mass Index 34.70 (106.59 kg, 175.26 cm) [facility] ED Course: 14:04 Patient arrived in ED. as 14:33 Triage completed. jd3 14:35 Arm band placed on. jd3 14:37 Jessie Cooley, RN is Primary Nurse. ca1 14:41 Naveen Kerr NP is PHCP. pm1 14:42 Luis Felipe Rdz MD is Attending Physician. pm1 14:44 Patient has correct armband on for positive identification. Placed in gown. Bed in low ca1 position. Call light in reach. Side rails up X2. nuclear monitoring technician on. Pulse ox on. NIBP on. Warm blanket given. 15:12 CT Head Brain wo Cont In Process Unspecified. EDMS 15:36 XRAY Chest (1 view) In Process Unspecified. EDMS 15:49 Inserted saline lock: 20 gauge in right hand, using aseptic technique. Blood collected. dh4 17:38 No provider procedures requiring assistance completed. IV discontinued, intact, ca1 bleeding controlled, No redness/swelling at site. Pressure dressing applied. Administered Medications: No medications were administered Outcome: 17:24 Discharge ordered by . pm1 17:38 Discharged to home ambulatory, with family. ca1 17:38 Condition: stable 17:38 Discharge instructions given to patient, Instructed on discharge instructions, follow up and referral plans. Demonstrated understanding of instructions, follow-up care. 17:39 Patient left the ED. ca1 Signatures: Dispatcher [employer] Harmony Resendez Patrick, NP PSYCHIATRIC ASSISTANT pm1 Zach Pierre RN RN jd3 Jessie Cooley RN RN ca1 Nitish Pérez 4
[2020-07-12 19:32] VITALS: TEMP 98.4
[2020-07-12 19:37] VITALS: BP 159/57; O2SAT 99
--- NOTE | 2020-07-13 07:41 | EKG ---
Test Date: 2020-07-12 Test Time: 16:03:11 Ent Surgeon: NADINE MEASUREMENT RESULTS: Intervals: Rate: 53 VT: 184 QRSD: 86 QT: 420 QTc: 394 Decker: P: 50 VT: 184 QRS: 22 T: 34 INTERPRETIVE STATEMENTS: Sinus bradycardia Otherwise normal ECG Compared to ECG 10/17/2018 18:06:55 Sinus rhythm no longer present Electronically Signed On 07-13-20 07:40:34 REED POLISHER by Kirill Scott
== END 2020-07-12 17:39 | disposition home or self-care (01) ==
LOC: ER 14:03
DX: I10 Essential (primary) hypertension (principal)
CPT/HCPCS: 36415; 70450; 71045; 80048; 80076; 83735; 83880; 84484; 85025; 85610; 93005; 99284

== ENCOUNTER 2020-07-13 13:11 | Emergency (ER) | payer OTHER ==
--- NOTE | 2020-07-13 14:19 | EDPHYS ---
Physician Documentation [facility] Name: Victor M Del Toro Age: 80 yrs Sex: Male : 1940 Arrival Date: 07/13/2020 Time: 13:11 Bed 6 Private MD: ED Physician Luis Felipe Rdz HPI: 07/13 13:46 This 80 yrs old Male presents to ER via Ambulatory with complaints of High kb Blood Pressure, Headache. 13:46 The patient has elevated blood pressure and discovered this at home, with a home kb device. Onset: The symptoms/episode began/occurred "a few months ago". Associated signs and symptoms: Pertinent positives: headache, Pertinent negatives: chest pain, dizziness, dyspnea, lightheadedness, nausea, visual changes, vomiting, weakness. Severity of symptoms: At its worst the blood pressure was 220 mm Hg, in the emergency department the blood pressure is improved, 200 mm Hg. The patient has experienced similar episodes in the past. The patient has been recently seen at the [facility] Emergency Department, yesterday. Pt reports his blood pressure has been high for a few months. States his in April and he was caring for her so he didn't worry about his blood pressure then. States he is concerned about the blood pressure being high now because he is alone and if something happened to him no one would be around to know about it. Was seen yesterday for same symptoms and had blood work, EKG, chest x-ray and CT scan that were all normal. BP was 220/100 today so he came back in for reevaluation. Neuro exam wnl. Pt reports headache 4/10 to back of the head. Pt seems anxious during conversation. . Historical: - Allergies: 13:16 No Known Allergies; aa5 - Home Meds: 13:30 Diltiazem XR 180mg Oral [Active]; Diovan 160 mg oral tab [Active]; Protonix 40 mg oral aa5 TbEC [Active]; ezetimibe 10mg Oral [Active]; Flunisolide Nasal [Active]; olopatadine nasal nasal [Active]; Bentyl Oral PRN [Active]; Viagra Oral PRN [Active]; - PMHx: 13:16 High Cholesterol; Hypertension; seasonal allergies; aa5 - PSHx: 13:16 left foot; right foot; right knee; prostatectomy; left elbow; aa5 - Immunization history:: Adult Immunizations up to date. - Social history:: Smoking status: Patient denies any tobacco usage or history of. ROS: 13:45 Constitutional: Negative for fever, chills, and weight loss, ENT: Negative for injury, kb pain, and discharge, Neck: Negative for injury, pain, and swelling, Cardiovascular: Negative for chest pain, palpitations, and edema, Respiratory: Negative for shortness of breath, cough, wheezing, and pleuritic chest pain, Abdomen/GI: Negative for abdominal pain, nausea, vomiting, diarrhea, and constipation, MS/Extremity: Negative for injury and deformity, Skin: Negative for injury, rash, and discoloration. 13:45 Neuro: Positive for headache, Negative for altered mental status, dizziness, gait disturbance, hearing loss, loss of consciousness, numbness, seizure activity, speech changes, syncope, near syncope, tingling, tinnitus, tremor, visual changes, weakness. Exam: 13:45 Constitutional: This is a well developed, well nourished patient who is awake, alert, kb and in no acute distress. Head/Face: Normocephalic, atraumatic. Eyes: Pupils equal round and reactive to light, extra-ocular motions intact. Lids and lashes normal. Conjunctiva and sclera are non-icteric and not injected. Cornea within normal limits. Periorbital areas with no swelling, redness, or edema. Chest/axilla: Normal chest wall appearance and motion. Nontender with no deformity. No lesions are appreciated. Cardiovascular: Regular rate and rhythm with a normal S1 and S2. No gallops, murmurs, or rubs. Normal PMI, no JVD. No pulse deficits. Respiratory: Lungs have equal breath sounds bilaterally, clear to auscultation and percussion. No rales, rhonchi or wheezes noted. No increased work of breathing, no retractions or nasal flaring. Abdomen/GI: Soft, non-tender, with normal bowel sounds. No distension or tympany. No guarding or rebound. No evidence of tenderness throughout. Skin: Warm, dry with normal turgor. Normal color with no rashes, no lesions, and no evidence of cellulitis. MS/ Extremity: Pulses equal, no cyanosis. Neurovascular intact. Full, normal range of motion. Neuro: Awake and alert, GCS 15, oriented to person, place, time, and situation. Cranial nerves II-XII grossly intact. Motor strength 5/5 in all extremities. Sensory grossly intact. Cerebellar exam normal. Normal gait. 13:53 ECG was reviewed by the Attending Physician. kb Vital Signs: 13:14 BP 200 / 81; Pulse 82; Resp 16 S; Temp 98.3(O); Pulse Ox 99% on R/A; aa5 14:01 BP 156 / 76; Pulse 64; Resp 16; Temp 98.5(O); Pulse Ox 98% on R/A; mh5 MDM: 13:16 Patient medically screened. kb 13:44 Physician consultation: Kirill Scott MD was called at 13:44, regarding consult, kb patient's condition, paged, awaiting callback. 13:45 Data reviewed: vital signs, nurses notes, old medical records, ER cardiac workup kb results from yesterday reviewed. I have discussed the patient's presentation/case with the attending Emergency Department Physician;. Data interpreted: Pulse oximetry: on room air is 99 %. Interpretation: normal. 14:02 Counseling: I had a detailed discussion with the patient and/or guardian regarding: the kb historical points, exam findings, and any diagnostic results supporting the discharge/admit diagnosis, the need for outpatient follow up, a pearl glue drier, to return to the emergency department if symptoms worsen or persist or if there are any questions or concerns that arise at home. Physician consultation: Kirill Scott MD was contacted at 14:02, and will see patient in office, wants pt to stop diovan and start Hyzaar 100mg/25mg once daily and metoprolol 50mg BID, as well as continue prescribed diltalizem. He will see pt in office at 8:30 on Tuesday. Pt informed of all changes and appt for Tuesday. Pt in agreement with plan of care. . 07/13 13:28 Order name: Troponin (emerg Dept Use Only); Complete Time: 14:18 kb 07/13 13:28 Order name: EKG; Complete Time: 13:29 kb 07/13 13:28 Order name: EKG - Nurse/Tech; Complete Time: 13:54 kb EC:53 Rate is 61 beats/min. Rhythm is regular. QRS [place] is Normal. [place] interval is normal at kb 182 msec. QRS interval is normal at 86 msec. QT interval is normal at 412 msec. Administered Medications: No medications were administered Disposition: 15:18 Co-signature as Attending Physician, Luis Felipe Rdz MD. rn Disposition: 07/13/20 14:19 Discharged to Home. Impression: Essential (primary) hypertension. - Condition is Stable. - Discharge Instructions: Hypertension, [id number]. - Prescriptions for Hyzaar 100- 25 mg Oral tablet - take 1 tablet by ORAL route once daily; 10 tablet. Metoprolol Tartrate 50 mg Oral Tablet - take 1 tablet by ORAL route 2 times per day take with meal; 20 tablet. - Medication Reconciliation Form, Thank You Letter, Antibiotic Education, Prescription Opioid Use form. - Follow up: Emergency Department; When: As needed; Reason: Worsening of condition. Follow up: Private Physician; When: 2 - 3 days; Reason: Recheck today's complaints, Continuance of care, Re-evaluation by your physician. Signatures: Dispatcher [employer] EDNM Matilda Hobson, FLEXO OPERATOR-C FLEXO OPERATOR-Ckb Luis Felipe Rdz MD MD rn Calderon, Audri, RN RN aa5 Teodoro Dillard RN RN bp Corrections: (The following items were deleted from the chart) 13:54 13:44 Physician consultation: Kirill Scott MD was called at 13:44, regarding consult, kb patient's condition, kb 14:38 14:19 07/13/2020 14:19 Discharged to Home. Impression: Essential (primary) bp hypertension. Condition is Stable. Discharge Instructions: Hypertension, [id number]. Prescriptions for Hyzaar 100-25 mg Oral tablet - take 1 tablet by ORAL route once daily; 10 tablet, Metoprolol Tartrate 50 mg Oral Tablet - take 1 tablet by ORAL route 2 times per day take with meal; 20 tablet. and Forms are Medication Reconciliation Form, Thank You Letter, Antibiotic Education, Prescription Opioid Use. Follow up: Emergency Department; When: As needed; Reason: Worsening of condition. Follow up: Private Physician; When: 2 - 3 days; Reason: Recheck today's complaints, Continuance of care, Re-evaluation by your physician. kb
--- NOTE | 2020-07-13 14:19 | ER ---
Nurse's Notes [facility] Name: Victor M Del Toro Age: 80 yrs Sex: Male : 1940 Arrival Date: 07/13/2020 Time: 13:11 Bed 6 Private MD: Diagnosis: Essential (primary) hypertension Presentation: 07/13 13:14 Chief complaint: Patient states: "my blood pressure was 216/100 and I was seen here aa5 yesterday for it". Pt only c/o headache. 13:14 Coronavirus screen: Client denies travel out of the [place] in the last 14 days. At this aa5 time, the client does not indicate any symptoms associated with coronavirus-19. Ebola Screen: Patient negative for fever greater than or equal to 101.5 degrees Fahrenheit, and additional compatible Ebola Virus Disease symptoms. Initial Sepsis Screen: Does the patient meet any 2 criteria? No. Patient's initial sepsis screen is negative. Does the patient have a suspected source of infection? No. Patient's initial sepsis screen is negative. Risk Assessment: Do you want to hurt yourself or someone else? Patient reports no desire to harm self or others. Onset of symptoms was June 2020. 13:14 Acuity: EDY 2 aa5 13:14 Method Of Arrival: Ambulatory aa5 Triage Assessment: 13:15 Headache History: The patient has had previous headaches and this one is similar to bp previous episodes. General: Appears in no apparent distress. comfortable, Behavior is cooperative, appropriate for age, anxious. Pain: Complains of pain in head Pain currently is 6 out of 10 on a pain scale. Pain began 1 hour ago. Also complains of no other associated symptoms. EENT: No deficits noted. Neuro: Level of Consciousness is awake, alert, obeys commands, Oriented to Appropriate for age. Cardiovascular: No deficits noted. Respiratory: No deficits noted. GI: No signs and/or symptoms were reported involving the gastrointestinal system. : No signs and/or symptoms were reported regarding the genitourinary system. Derm: No deficits noted. Musculoskeletal: No deficits noted. Historical: - Allergies: 13:16 No Known Allergies; aa5 - Home Meds: 13:30 Diltiazem XR 180mg Oral [Active]; Diovan 160 mg oral tab [Active]; Protonix 40 mg oral aa5 TbEC [Active]; ezetimibe 10mg Oral [Active]; Flunisolide Nasal [Active]; olopatadine nasal nasal [Active]; Bentyl Oral PRN [Active]; Viagra Oral PRN [Active]; - PMHx: 13:16 High Cholesterol; Hypertension; seasonal allergies; aa5 - PSHx: 13:16 left foot; right foot; right knee; prostatectomy; left elbow; aa5 - Immunization history:: Adult Immunizations up to date. - Social history:: Smoking status: Patient denies any tobacco usage or history of. Screenin:20 Abuse screen: Denies threats or abuse. Nutritional screening: No deficits noted. rb3 Tuberculosis screening: No symptoms or risk factors identified. Fall Risk None identified. Assessment: 13:20 General: Appears in no apparent distress. comfortable, Behavior is calm, cooperative. rb3 Pain: Complains of pain in head. Neuro: Level of Consciousness is awake, alert, obeys commands, Oriented to person, place, time, situation. Cardiovascular: Patient's skin is warm and dry. Respiratory: Airway is patent Respiratory effort is even, unlabored, Respiratory pattern is regular, symmetrical. GI: No signs and/or symptoms were reported involving the gastrointestinal system. : No signs and/or symptoms were reported regarding the genitourinary system. Musculoskeletal: Range of motion: intact in all extremities. 14:35 Reassessment: PT D/C HOME AMBULATORY, DX WITH HTN. bp Vital Signs: 13:14 BP 200 / 81; Pulse 82; Resp 16 S; Temp 98.3(O); Pulse Ox 99% on R/A; aa5 14:01 BP 156 / 76; Pulse 64; Resp 16; Temp 98.5(O); Pulse Ox 98% on R/A; mh5 ED Course: 13:11 Patient arrived in ED. as 13:13 Inserted saline lock: 20 gauge in right wrist, using aseptic technique. Blood collected.rb3 13:14 Arm band placed on Patient placed in an exam room, on a stretcher. aa5 13:15 Mickie Vaughn, MURAIL is Primary Nurse. rb3 13:16 Matilda Hobson FNP-C [facility]. kb 13:16 Luis Felipe Rdz MD is Attending Physician. kb 13:20 Patient has correct armband on for positive identification. Bed in low position. Call rb3 light in reach. Side rails up X 1. Pulse ox on. NIBP on. Warm blanket given. 13:26 Triage completed. aa5 13:54 Troponin (emerg Dept Use Only) Sent. rb3 14:35 No provider procedures requiring assistance completed. Patient did not have IV access bp during this emergency room visit. Administered Medications: No medications were administered Outcome: 14:19 Discharge ordered by . liat 14:35 Discharged to home ambulatory. bp 14:35 Condition: stable 14:35 Discharge instructions given to patient, Instructed on discharge instructions, follow up and referral plans. medication usage, Demonstrated understanding of instructions, follow-up care, medications. 14:38 Patient left the ED. bp Signatures: Matilda Hobson, SENIOR GENETIC COUNSELOR-C SENIOR GENETIC COUNSELOR-Harmony Rodriguez Audri, RN RN aa5 Nessa Wiggins Brian, RN RN bp Mickie Vaughn, RN RN rb3
== END 2020-07-13 14:38 | disposition home or self-care (01) ==
LOC: ER 13:11
DX: I10 Essential (primary) hypertension (principal); E78.00 Pure hypercholesterolemia, unspecified
CPT/HCPCS: 36415; 84484; 93005; 99283

== ENCOUNTER 2020-11-08 13:02 | Emergency (ER) | payer OTHER ==
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
[2020-11-08 16:04] VITALS: TEMP 98.1
[2020-11-08 16:05] VITALS: BP 168/88; O2SAT 99
== END 2020-11-08 15:59 | disposition home or self-care (01) ==
LOC: ER 13:02
DX: S16.1XXA Strain of muscle, fascia and tendon at neck level, initial encounter (principal); S20.219A Contusion of unspecified front wall of thorax, initial encounter; V49.49XA Driver injured in collision with other motor vehicles in traffic accident, initial encounter; I10 Essential (primary) hypertension; Z88.7 Allergy status to serum and vaccine
CPT/HCPCS: 70450; 71045; 72125; 99283

== ENCOUNTER 2021-10-23 21:02 | Emergency (ER) | payer OTHER ==
--- OUTSIDE RECORDS SUMMARY | 2021-10-23 21:05 | XMS REPORT | Continuity of Care Document ---
:1940 Author Organization [facility] Address [address] [place] [address] 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 Social History Social Habit Start Date Stop Date Quantity Comments Source History of Cigarette Smoker [facility] alexis tobacco use [facility] to Not sure [facility] SARS-CoV-2 of Medicine (event) Tobacco use and 2020-06-05 2020-06-05 Never used [facility] llege exposure 00:00:00 00:00:00 of Medicine Alcohol intake 2020-06-05 2020-06-05 Current drinker [facility] 00:00:00 00:00:00 of alcohol of Medicine (finding) Tobacco Comment 2011-06-21 2011-06-21 pt. quit 39 yrs. [facility] 00:00:00 00:00:00 ago of Medicine Smoking Status Start Date Stop Date Source Former smoker 2020-06-05 00:00:00 2020-06-05 00:00:00 [facility] alexis of Medicine Medications Ordered Filled Start Stop Current Ordering Indication Dosage Frequency Signature Comments Components Source Medication Medication Date Date Medication? Clinician (SIG) Name Name dicyclomine 2019-08 Yes 20mg Take 20 mg Pavel (BENTYL) 20 0-08 by mouth Kole chowdhury MG tablet 20:18: every 6 of 41 hours. Medicin e cetirizine, 2019-08 Yes 10mg Take 10 mg Pavel ZYRTEC, 0-08 by mouth [place] (ZYRTEC 20:18: once. of ALLERGY) 10 41 Medicin MG tablet e Multiple 2019-08 Yes Take by [facility] Vitamins-Mi 0-08 mouth. Valeriog e nerals 20:18: of (CENTRUM 41 Medicin SILVER) e TABS Lynd-3 2019-08 Yes Take by [facility] Fatty Acids 0-08 mouth. Valeriog e (FISH OIL) 20:18: of 1000 MG 41 Medicin CAPS e Aspirin 2019-08 Yes Take by [facility] (ASPIR-81) 0-08 mouth. [place] 81 MG TBEC 20:18: of 41 Medicin e diphenhydrA 2019-08 Yes 25mg Take 25 mg Pavel MINE 0-08 by mouth [place] (BENADRYL) 20:18: every 6 of 25 MG 41 hours as Medicin tablet needed for e Sleep. Pantoprazol 2019-08 Yes Take by [place] [facility] Sodium 0-08 mouth. [place] (PROTONIX) 20:18: of 40 MG PACK 41 Medicin e flunisolide 2019-08 Yes 2{spray Inhale 2 [facility] (NASALIDE) 0-08 } Sprays by Kole chowdhury 25 MCG/ACT 20:18: nose every o f (0.025%) 41 12 hours. Medici n nasal spray e ketoconazol 2017-08 Yes [id number] Apply B aylor e (NIZORAL) 0-24 topically Col lege 2 % cream 00:00: twice a of 00 day as Medicin needed e valsartan Yes 160mg Take 160 [address] (DIOVAN) 2-05 mg by [place] 160 MG 20:48: mouth of tablet 43 daily. Medicin e torsemide Yes 20mg Take 20 mg [facility] (DEMADEX) 2-05 by mouth Colleg e 20 MG 20:48: daily. of tablet 43 Medicin e diltiazem Yes TAKE ONE [facility] or (CARDIZEM 9-27 CAPSULE BY Kole chowdhury CD) 180 MG 00:00: MOUTH of ER capsule 00 EVERY DAY Medi elizabeth e sildenafil Yes Use as [facility] citrate 4-18 directed. [place] (VIAGRA) 00:00: of 100 MG 00 Medicin tablet e Vital Signs Vital Name Observation Time Observation Value Comments Source Systolic blood 2020-06-05 20:16:00 146 mm[Hg] [facility] pressure [facility] Diastolic blood 2020-06-05 20:16:00 71 mm[Hg] [facility] pressure Medicine Heart rate 2020-06-05 20:16:00 65 /min [facility] Body height 2020-06-05 20:16:00 175.3 cm [facility] Body weight 2020-06-05 20:16:00 102.059 kg [facility] BMI 2020-06-05 20:16:00 33.23 kg/m2 [facility] Procedures This patient has no known procedures. Plan of Care Planned Activity Planned Date Details Comments Source Future Scheduled AL TANGENTIAL Ordered: [facility] Col lege of Test BIOPSY SKIN SINGLE 06/05/2020 Medicine LESION [code = 01958] Future Scheduled AL DESTRUC Ordered: [facility] Kole ege of Test PREMALIGNANT, FIRST 06/05/2020 Medicine LESION([id number]) [code = 36916] Future Scheduled AL DESTRUC Ordered: [facility] Kole ege of Test PREMALIGNANT,2-14 06/05/2020 Medicine LESIONS([id number]) [code = 05014] Future Scheduled TETANUS SHOT [facility] Kole ege of Test (ADULT) [code = Medicine TETANUS SHOT (ADULT)] Future Scheduled BMI FOLLOW UP PLAN [facility] Test [code = BMI FOLLOW Medicine UP PLAN] Future Scheduled HEPATITIS C [facility] Kole ege of Test SCREENING [code = Medicine HEPATITIS C SCREENING] Future Scheduled ZOSTER VACCINE (1 [facility] Test of 2) [code = Medicine ZOSTER VACCINE (1 of 2)] Future Scheduled FALL SCREEN [code = [facility] of Test FALL SCREEN] Medicine Future Scheduled PNEUMOVAX >=65 [facility] Co llege of Test (PPSV23) [code = Medicine PNEUMOVAX >=65 (PPSV23)] Future Scheduled MEDICARE AWV [facility] Kole ege of Test (Initial) [code = Medicine MEDICARE AWV (Initial)] Future Scheduled FLU VACCINE > 6 [facility] ollege of Test MONTHS [code = FLU Medicine VACCINE > 6 MONTHS] Encounters Start End Encounter Admission Attending Care Care Encounter Source Date/Time Date/Time Type Type Clinicians Facility Department ID 2020-10-23 2020-10-23 Outpatient [facility] [id number] [facility] 00:00:00 00:00:00 2020-09-26 2020-09-26 Outpatient [facility] [id number] [facility] 00:00:00 00:00:00 2020-06-05 2020-06-05 Office DANDY Soto [id number] [facility] 14:58:48 16:22:22 Visit [facility]BULATOR [id number] [employer] [id number] of [id number] Medi elizabeth 300 e Results This patient has no known results.
[2021-10-23 23:00] LABS: Urine Blood Trace-intact (Negative); Urine Glucose Negative (Negative); Urine Protein Negative (Negative); Urine Specific Gravity 1.025 (1.005-1.030); Urine pH 6.5 (5.0-7.0)
[2021-10-23 23:18] LABS: Absolute Lymphocytes (CBC) 1.5 K/uL (0.7-4.9); Hematocrit 42.8 % (39.6-49.0); Lymphocytes % 24.2 % (15.3-44.8); MPV 8.5 fL (7.6-11.3); Protime INR 0.97; RBC Red Blood Cell Count 4.84 M/uL (4.33-5.43)
[2021-10-23 23:34] LABS: ALT/SGPT 26 U/L (12-78); Albumin 3.7 g/dL (3.4-5.0); Alkaline Phosphatase 85 U/L (45-117); BUN Blood Urea Nitrogen 25 mg/dL (7-18); Bicarbonate 29 mmol/L (21-32); Bilirubin Total 0.4 mg/dL (0.2-1.0); Glucose Level 117 mg/dL (74-106); Lipase 88 U/L (73-393); NT PRO-BNP 123 pg/mL (<450); Protein, Total 6.8 g/dL (6.4-8.2); Sodium Level 140 mmol/L (136-145)
[2021-10-23 23:35] LABS: AST/SGOT 29 U/L (15-37); Bilirubin Direct < 0.1 mg/dL (0-0.2); Magnesium 2.1 mg/dL (1.8-2.4)
[2021-10-23 23:39] LABS: SARS-COV-2 RT PCR NEGATIVE (NEGATIVE)
--- NOTE | 2021-10-24 00:41 | EDPHYS ---
Physician Documentation [facility] Name: Victor M Del Toro Age: 81 yrs Sex: Male : 1940 Arrival Date: 10/23/2021 Time: 21:05 Bed 23 Private MD: ED Physician Vinicius Melendez HPI: 10/23 22:33 This 81 yrs old Male presents to ER via Ambulatory with complaints of High Blood mh7 Pressure. 22:33 The patient has elevated blood pressure and discovered this at home, with a home mh7 device. Onset: The symptoms/episode began/occurred this morning, today. Modifying factors: The symptoms are aggravated by stress, The symptoms are alleviated by nothing. Associated signs and symptoms: Pertinent positives: headache, Pertinent negatives: chest pain, dizziness, dyspnea, lightheadedness, nausea, visual changes, vomiting, weakness. Severity of symptoms: At its worst the blood pressure was 190 mm Hg, in the emergency department the blood pressure is improved, moderately, 155 mm Hg. The patient has experienced similar episodes in the past, several times. Historical: - Allergies: 21:34 Tetanus Vaccines and Toxoid-horse serum; ab2 - Home Meds: 21:42 Aspirin Oral [Active]; Bentyl Oral PRN [Active]; Demadex Oral [Active]; Diltiazem XR lr4 180mg Oral [Active]; Diovan 160 mg Oral tab [Active]; ezetimibe 10mg Oral [Active]; Flunisolide Nasal [Active]; olopatadine nasal [Active]; Protonix 40 mg Oral TbEC [Active]; Viagra Oral PRN [Active]; - PMHx: 21:34 High Cholesterol; Hypertension; seasonal allergies; ab2 - Immunization history:: Adult Immunizations up to date, Client reports receiving the 2nd dose of the Covid vaccine, Last tetanus immunization: up to date Pneumococcal vaccine is up to date, Flu vaccine is up to date. - Social history:: Smoking status: Patient denies any tobacco usage or history of. ROS: 22:33 Constitutional: Negative for fever, chills, and weight loss, Eyes: Negative for injury, mh7 pain, redness, and discharge, ENT: Negative for injury, pain, and discharge, Neck: Negative for injury, pain, and swelling, Cardiovascular: Negative for chest pain, palpitations, and edema, Respiratory: Negative for shortness of breath, cough, wheezing, and pleuritic chest pain, Abdomen/GI: Negative for abdominal pain, nausea, vomiting, diarrhea, and constipation, Back: Negative for injury and pain, : Negative for injury, bleeding, discharge, and swelling, MS/Extremity: Negative for injury and deformity, Skin: Negative for injury, rash, and discoloration, Psych: Negative for depression, anxiety, suicide ideation, homicidal ideation, and hallucinations, Allergy/Immunology: Negative for hives, rash, and allergies, Endocrine: Negative for neck swelling, polydipsia, polyuria, polyphagia, and marked weight changes, Hematologic/Lymphatic: Negative for swollen nodes, abnormal bleeding, and unusual bruising. Exam: 22:33 Constitutional: This is a well developed, well nourished patient who is awake, alert, mh7 and in no acute distress. Head/Face: Normocephalic, atraumatic. Eyes: Pupils equal round and reactive to light, extra-ocular motions intact. Lids and lashes normal. Conjunctiva and sclera are non-icteric and not injected. Cornea within normal limits. Periorbital areas with no swelling, redness, or edema. Neck: Trachea midline, no thyromegaly or masses palpated, and no cervical lymphadenopathy. Supple, full range of motion without nuchal rigidity, or vertebral point tenderness. No Meningismus. Chest/axilla: Normal chest wall appearance and motion. Nontender with no deformity. No lesions are appreciated. Cardiovascular: Regular rate and rhythm with a normal S1 and S2. No gallops, murmurs, or rubs. Normal PMI, no JVD. No pulse deficits. Respiratory: Lungs have equal breath sounds bilaterally, clear to auscultation and percussion. No rales, rhonchi or wheezes noted. No increased work of breathing, no retractions or nasal flaring. Abdomen/GI: Soft, non-tender, with normal bowel sounds. No distension or tympany. No guarding or rebound. No evidence of tenderness throughout. Back: No spinal tenderness. No costovertebral tenderness. Full range of motion. Skin: Warm, dry with normal turgor. Normal color with no rashes, no lesions, and no evidence of cellulitis. MS/ Extremity: Pulses equal, no cyanosis. Neurovascular intact. Full, normal range of motion. Neuro: Awake and alert, GCS 15, oriented to person, place, time, and situation. Cranial nerves II-XII grossly intact. Motor strength 5/5 in all extremities. Sensory grossly intact. Cerebellar exam normal. Normal gait. Psych: Awake, alert, with orientation to person, place and time. Behavior, mood, and affect are within normal limits. 22:45 ECG was reviewed by the Attending Physician. [facility] Vital Signs: 21:31 BP 168 / 68; Pulse 71; Resp 18; Temp 99.0(TE); Pulse Ox 96% on R/A; Weight 115.21 kg; ab2 Height 5 ft. 9 in. (175.26 cm); Pain 0/10; 21:41 BP 155 / 62; Pulse 75; Resp 18; Pulse Ox 97% on R/A; lr4 23:16 BP 150 / 55; Pulse 56; Resp 18; Pulse Ox 100% on R/A; Pain 0/10; lr4 23:54 BP 131 / 56; Pulse 44; Resp 18; Pulse Ox 99% on R/A; lr4 10/24 00:12 BP 119 / 51; Pulse 42; Resp 16; Temp 98.5; Pulse Ox 99% on R/A; Pain 0/10; brody 10/23 21:31 Body Mass Index 37.51 (115.21 kg, 175.26 cm) ab2 MDM: 00:35 Differential diagnosis: hypertensive crisis, Malignant HTN, CVA, intracerebral mh7 hemorrhage. Data reviewed: vital signs, nurses notes, old medical records, lab test result(s), cardiac enzymes, CBC, electrolytes, urinalysis, EKG, radiologic studies, CT scan, plain films. Data interpreted: Pulse oximetry: on room air is 99 %. Interpretation: normal. 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 Response to treatment: the patient's symptoms have markedly improved after treatment, patient is well hydrated. ED course: Feels better, well appearing, NAD, VSS, no focal neurological deficits. Ambulating around ED without difficulty. Denies any complaints including headache, chest pain, SOB, dizziness, or nausea. Discussed all test results and findings. States that his heart rate typically is in the 40's-50's. He requests to be discharged from the ED at this time. He will follow up with his doctors but return to ED if any urgent concerns.. 00:40 Patient medically screened. 10/23 22:28 Order name: Basic Metabolic Panel; Complete Time: 23:43 10/23 22:28 Order name: CBC with Diff; Complete Time: 23:43 [facility] 10/23 22:28 Order name: LFT's; Complete Time: 23:43 10/23 22:28 Order name: Magnesium; Complete Time: 23:43 [facility] 10/23 22:28 Order name: NT PRO-BNP; Complete Time: 23:43 10/23 22:28 Order name: PT-INR; Complete Time: 23:43 10/23 22:28 Order name: Troponin HS; Complete Time: 23:43 10/23 22:28 Order name: XRAY Chest (1 view) [facility] 10/23 22:28 Order name: Lipase; Complete Time: 23:43 10/23 22:28 Order name: CT Head Brain wo Cont 10/23 22:29 Order name: COVID-19/FLU A+B/RSV (Document "Date of Onset" if Symptomatic); Complete [facility] Time: 23:43 10/23 22:59 Order name: Urine Dipstick-Ancillary; Complete Time: 23:01 [facility] 10/23 22:28 Order name: EKG; Complete Time: 22:44 10/23 22:28 Order name: Cardiac monitoring; Complete Time: 22:48 [facility] 10/23 22:28 Order name: EKG - Nurse/Tech; Complete Time: 22:48 [facility] 10/23 22:28 Order name: IV Saline Lock; Complete Time: 22:48 [facility] 10/23 22:28 Order name: Labs collected and sent; Complete Time: 22:48 [facility] 10/23 22:28 Order name: O2 Per Protocol; Complete Time: 22:48 [facility] 10/23 22:28 Order name: O2 Sat Monitoring; Complete Time: 22:48 [facility] 10/23 22:28 Order name: Urine Dipstick-Ancillary (obtain specimen); Complete Time: 23:08 [facility] EC/25 22:45 Rate is 52 beats/min. Rhythm is regular, Sinus bradycardia. QRS [place] is Normal. [place] mh7 interval is normal. QRS interval is normal. QT interval is normal. No Q waves. T waves are Normal. No ST changes noted. Clinical impression: Sinus bradycardia. Administered Medications: No medications were administered Disposition Summary: 10/24/21 00:40 Discharge Ordered Location: Home [facility] Problem: an acute exacerbation [facility] Symptoms: have improved [facility] Condition: Stable [facility] Diagnosis - Essential (primary) hypertension 7 - Headache [facility] Followup: [facility] - With: Private Physician - When: 1 - 2 days - Reason: Worsening of condition, Recheck today's complaints, Continuance of care, Re-evaluation by your physician Followup: [facility] - With: Kirill Scott MD - When: 1 - 2 days - Reason: Worsening of condition, Recheck today's complaints, Continuance of care, Re-evaluation by your physician Discharge Instructions: - Discharge Summary Sheet [facility] - General Headache Without Cause [facility] - Hypertension, Adult, [id number] [facility] - How to Take Your Blood Pressure, [id number] [facility] Forms: - Medication Reconciliation Form [facility] - Thank You Letter [facility] - Antibiotic Education [facility] - Prescription Opioid Use [facility] Signatures: Dispatcher [employer] EDMS Vinicius Melendez MD MD [facility] Leroy Das Lashaunda, RN RN lr4 Corrections: (The following items were deleted from the chart) 22:47 22:44 Chest Single View ordered. EDMS EDMS 22:47 22:44 Head Brain Wo Cont ordered. EDMS EDMS 22:48 22:44 Chest Single View+RAD.RAD.BRZ ordered. EDMS EDMS
--- NOTE | 2021-10-24 00:41 | ER ---
Nurse's Notes [facility] Name: Victor M Del Toro Age: 81 yrs Sex: Male : 1940 Arrival Date: 10/23/2021 Time: 21:05 Bed 23 Private MD: Diagnosis: Essential (primary) hypertension;Headache Presentation: 10/23 21:31 Chief complaint: Patient states: "sarah been feeling bad today so I took my BP and it was ab2 197/88, so I took a clonidine pill, but it didn't help". Coronavirus screen: Vaccine status: Patient reports receiving the 2nd dose of the covid vaccine. Client denies travel out of the [place] in the last 14 days. At this time, the client does not indicate any symptoms associated with coronavirus-19. Ebola Screen: Patient negative for fever greater than or equal to 101.5 degrees Fahrenheit, and additional compatible Ebola Virus Disease symptoms Patient denies exposure to infectious person. Patient denies travel to an Ebola-affected area in the 21 days before illness onset. No symptoms or risks identified at this time. Initial Sepsis Screen: Does the patient meet any 2 criteria? No. Patient's initial sepsis screen is negative. Does the patient have a suspected source of infection? No. Patient's initial sepsis screen is negative. Risk Assessment: Do you want to hurt yourself or someone else? Patient reports no desire to harm self or others. Onset of symptoms is unknown. 21:31 Method Of Arrival: Ambulatory ab2 21:31 Acuity: EDY 4 ab2 Triage Assessment: 21:34 General: Appears in no apparent distress. comfortable, Behavior is calm, cooperative, ab2 appropriate for age. Pain: Denies pain. Historical: - Allergies: 21:34 Tetanus Vaccines and Toxoid-horse serum; ab2 - Home Meds: 21:42 Aspirin Oral [Active]; Bentyl Oral PRN [Active]; Demadex Oral [Active]; Diltiazem XR lr4 180mg Oral [Active]; Diovan 160 mg Oral tab [Active]; ezetimibe 10mg Oral [Active]; Flunisolide Nasal [Active]; olopatadine nasal [Active]; Protonix 40 mg Oral TbEC [Active]; Viagra Oral PRN [Active]; - PMHx: 21:34 High Cholesterol; Hypertension; seasonal allergies; ab2 - Immunization history:: Adult Immunizations up to date, Client reports receiving the 2nd dose of the Covid vaccine, Last tetanus immunization: up to date Pneumococcal vaccine is up to date, Flu vaccine is up to date. - Social history:: Smoking status: Patient denies any tobacco usage or history of. Screenin:41 Abuse screen: Denies threats or abuse. Nutritional screening: No deficits noted. lr4 Tuberculosis screening: No symptoms or risk factors identified. Fall Risk None identified. Assessment: 21:43 General: Appears in no apparent distress. comfortable, Behavior is calm, cooperative. lr4 Pain: Denies pain. Neuro: No deficits noted. Cardiovascular: No deficits noted. Respiratory: Reports. GI: No deficits noted. Musculoskeletal: No deficits noted. 10/24 00:13 Reassessment: No changes from previously documented assessment. I recv'd report on the brody pt and he is resting with NAD. He reports that he lives alone, as his passed a year and a half ago. He has children in both, [place] and [facility]. The son that lives in [place] [place] but the pt declined, as he is coming down tomorrow, with his family. The MD is speaking with the pt at this time. His test were unremarkable and his VS have returned to "normal for (me)". He reports feeling "much better". The pt says he is "ready to head home". . 00:41 General: The pt ambulated on the unit and reports "I feel fine." He ambulated with a brody steady gait. . Vital Signs: 10/23 21:31 BP 168 / 68; Pulse 71; Resp 18; Temp 99.0(TE); Pulse Ox 96% on R/A; Weight 115.21 kg; ab2 Height 5 ft. 9 in. (175.26 cm); Pain 0/10; 21:41 BP 155 / 62; Pulse 75; Resp 18; Pulse Ox 97% on R/A; lr4 23:16 BP 150 / 55; Pulse 56; Resp 18; Pulse Ox 100% on R/A; Pain 0/10; lr4 23:54 BP 131 / 56; Pulse 44; Resp 18; Pulse Ox 99% on R/A; lr4 10/24 00:12 BP 119 / 51; Pulse 42; Resp 16; Temp 98.5; Pulse Ox 99% on R/A; Pain 0/10; brody 10/23 21:31 Body Mass Index 37.51 (115.21 kg, 175.26 cm) ab2 ED Course: 10/23 21:05 Patient arrived in ED. ja2 21:34 Triage completed. ab2 21:34 Arm band placed on right wrist. ab2 21:37 Toshia Barker, RN is Primary Nurse. lr4 21:42 No provider procedures requiring assistance completed. lr4 21:43 Patient has correct armband on for positive identification. Bed in low position. Call lr4 light in reach. Side rails up X 1. Side rails up X2. NIBP on. Door closed. Lights dimmed. 22:13 Vinicius Melendez MD is Attending Physician. mh7 22:41 EKG done, by ED staff. lr4 22:47 Inserted saline lock: 20 gauge in left antecubital area, using aseptic technique. lr4 22:47 COVID-19/FLU A+B/RSV (Document "Date of Onset" if Symptomatic) Sent. lr4 22:47 Lipase Sent. lr4 22:48 Basic Metabolic Panel Sent. lr4 22:48 CBC with Diff Sent. lr4 22:48 LFT's Sent. lr4 22:48 Magnesium Sent. lr4 22:48 NT PRO-BNP Sent. lr4 22:48 PT-INR Sent. lr4 22:48 Troponin HS Sent. lr4 23:07 XRAY Chest (1 view) In Process Unspecified. EDMS 23:08 CT Head Brain wo Cont Sent. lr4 23:11 CT Head Brain wo Cont In Process Unspecified. EDMS 10/24 00:05 Report given to Jocelyn. lr4 00:40 Kirill Scott MD is Referral Physician. mh7 00:47 intact, bleeding controlled, No redness/swelling at site. Pressure dressing applied. brody Administered Medications: No medications were administered Outcome: 10/23 21:42 Condition: stable lr4 10/24 00:40 Discharge ordered by . mh7 00:42 Discharged to home ambulatory. brody 00:42 Discharge instructions given to patient, Instructed on discharge instructions, follow up and referral plans. Demonstrated understanding of instructions, follow-up care. 00:48 Patient left the ED. brody Signatures: Dispatcher [employer] Vinicius Paris MD MD mh7 Magda Parra Brenda RN RN Leroy Long Lashaunda, RN RN lr4
[2021-10-24 01:17] VITALS: O2SAT 99
[2021-10-24 01:19] VITALS: BP 119/51; TEMP 98.5
--- NOTE | 2021-10-24 10:21 | RAD REPORT ---
EXAM DESCRIPTION: RAD - Chest Single View - 10/23/2021 11:07 pm CLINICAL HISTORY: Hypertensive Chest pain. COMPARISON: Chest Single View dated 11/08/2020; Chest Single View dated 07/12/2020; Chest Single View dated 10/17/2018; CHEST SINGLE VIEW dated 03/15/2014 FINDINGS: Portable technique limits examination quality. The lungs are grossly clear. The heart is normal in size. No displaced fractures. IMPRESSION: No acute intrathoracic process suspected.
--- NOTE | 2021-10-24 21:24 | RAD REPORT ---
EXAM DESCRIPTION: Head Brain Wo Cont CLINICAL HISTORY: 81 years Male HEADACHE COMPARISON: November 08, 2020 TECHNIQUE: Images were obtained in axial, sagittal, and coronal planes. This exam was performed according to our departmental dose-optimization program which includes use of Automated Exposure Control, adjustment of the mA and/or kV according to patient size and/or use of iterative reconstruction technique. FINDINGS: Ventricular system appears age-appropriate in size. No abnormal areas of increased attenuation seen. No extra-axial fluid collections noted. No evidence for skull fracture. Symmetric aeration mastoid air cells bilaterally. Unremarkable parana ricardo sinuses. IMPRESSION: No acute intracranial abnormality. No evidence for hemorrhage, mass lesion, or large acu te infarction. 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 The interpreting radiologist is fully responsible for the content of the report.
== END 2021-10-24 00:48 | disposition home or self-care (01) ==
LOC: ER 21:02
DX: I10 Essential (primary) hypertension (principal); E78.00 Pure hypercholesterolemia, unspecified; Z88.7 Allergy status to serum and vaccine; Z88.8 Allergy status to other drugs, medicaments and biological substances; Z79.82 Long term (current) use of aspirin; Z20.822 Contact with and (suspected) exposure to COVID-19
CPT/HCPCS: 85025; 80048; 36415; 83735; 85610; 80076; 81003; 84484; 83690; 83880; 0241U; 70450; 71045; 99284; 93005

== ENCOUNTER 2022-07-08 08:50 | Emergency (ER) | payer OTHER ==
--- OUTSIDE RECORDS SUMMARY | 2022-07-08 08:53 | XMS REPORT | Continuity of Care Document ---
:1940 Author Organization [facility] t Address [address] [place] [address] [address]. 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 Social History Social Habit Start Date Stop Date Quantity Comments Source History of Cigarette Smoker [facility] Isabelle espinoza tobacco use of Medicine Exposure to Not sure [facility] Kamilla thomas SARS-CoV-2 of Medicine (event) Tobacco use and 2020-06-05 2020-06-05 Never used [facility] Co llege exposure 00:00:00 00:00:00 of Medicine Alcohol intake 2020-06-05 2020-06-05 Current drinker [facility] 00:00:00 00:00:00 of alcohol of Medicine (finding) Tobacco Comment 2011-06-21 2011-06-21 pt. quit 39 yrs. [facility] 00:00:00 00:00:00 ago of Medicine Sex Assigned At [address] [facility] Smoking Status Start Date Stop Date Source Former smoker 2020-06-05 00:00:00 2020-06-05 00:00:00 [facility] Isabelle espinoza of Medicine Medications Ordered Filled Start Stop Current Ordering Indication Dosage Frequency Signature Comments Components Source Medication Medication Date Date Medication? Clinician (SIG) Name Name dicyclomine 2019-08 Yes 20mg Take 20 mg [facility] (BENTYL) 20 0-08 by mouth [facility] MG tablet 20:18: every 6 of 41 hours. Medicin e cetirizine, 2019-08 Yes 10mg Take 10 mg Pavel ZYRTEC, 0-08 by mouth [place] (ZYRTEC 20:18: once. of ALLERGY) 10 41 Medicin MG tablet e Multiple 2019-08 Yes Take by [facility] Vitamins-Mi 0-08 mouth. Colleg e nerals 20:18: of (CENTRUM 41 Medicin SILVER) e TABS [place]-3 2019-08 Yes Take by [facility] Fatty Acids 0-08 mouth. Colleg e (FISH OIL) 20:18: of 1000 MG 41 Medicin CAPS e Aspirin 2019-08 Yes Take by [facility] (ASPIR-81) 0-08 mouth. College 81 MG TBEC 20:18: of 41 Medicin e diphenhydrA 2019-08 Yes 25mg Take 25 mg Pavel MINE 0-08 by mouth [place] (BENADRYL) 20:18: every 6 of 25 MG 41 hours as Medicin tablet needed for e Sleep. Pantoprazol 2019-08 Yes Take by [place] [facility] Sodium 0-08 mouth. [place] (PROTONIX) 20:18: of 40 MG PACK 41 Medicin e flunisolide 2019-08 Yes 2{spray Inhale 2 Pavel (NASALIDE) 0-08 } Sprays by Kole chowdhury 25 MCG/ACT 20:18: nose every o f (0.025%) 41 12 hours. Medici n nasal spray e ketoconazol 2017-08 Yes [id number] Apply B ayl[facility] e (NIZORAL) 0-24 topically Col [facility]ge 2 % cream 00:00: twice a of 00 day as Medicin needed e valsartan Yes 160mg Take 160 [place] (DIOVAN) 2-05 mg by [place] 160 MG 20:48: mouth of tablet 43 [...] Yes Use as [facility] citrate 4-18 [facility] (VIAGRA) 00:00: of 100 MG 00 Medicin tablet e Immunizations Ordered Immunization Filled Immunization Date Status Commen ts Source Name Name Covid-19 Vaccine 2020-10-[address] [facility] MRNA (PF) 12yr+ 00:00:00 Medical C enter (Pfizer/BioNTech)(IM M601) Covid-19 Vaccine 2020-09-[address] [facility] MRNA (PF) 12yr+ 00:00:00 Medical C enter (Pfizer/BioNTech)(IM M601) Vital Signs Vital Name Observation Time Observation Value Comments Source Systolic blood 2020-06-05 20:16:00 146 mm[Hg] [facility] pressure Medicine Diastolic blood 2020-06-05 20:16:00 71 mm[Hg] [facility] Heart rate 2020-06-05 20:16:00 65 /min [facility] Body height 2020-06-05 20:16:00 175.3 cm [facility] Body weight 2020-06-05 20:16:00 102.059 kg [facility] BMI 2020-06-05 20:16:00 33.23 kg/m2 [facility] Procedures This patient has no known procedures. Plan of Care Planned Activity Planned Date Details Comments Source Future Scheduled 2022-04-[address] [facility] Test 00:00:00 (#1) [code = [facility] INFLUENZA VACCINE (#1)] Future Scheduled 2021-08-[address] [facility] Test 00:00:00 (12+) [code = [facility] DEPRESSION SCREENING (12+)] Future Scheduled 2021-08-29 FALLS RISK SCREENING [facility] Test 00:00:00 [code = FALLS RISK Medical C enter SCREENING] Future Scheduled 2021-03-22 COVID-19 VACCINE ([address] [facility] Test 00:00:00 - Booster for Pfizer [facility] series) [code = COVID-19 VACCINE (3 - Booster for Pfizer series)] Future Scheduled 2006 PNEUMOCOCCAL 65+ YRS [facility] Test 00:00:00 (1 - PCV) [code = Medical Ce nter PNEUMOCOCCAL 65+ YRS (1 - PCV)] Future Scheduled 1991 SHINGLES VACCINES ([address] [facility] Test 00:00:00 of 2) [code = Medical Center SHINGLES VACCINES (1 of 2)] Future Scheduled 1960 DTAP/TDAP/TD [facility] 00:[facility]:00 VACCINES (1 - Tdap) [facility] [code = DTAP/TDAP/TD VACCINES (1 - Tdap)] Future Scheduled [place] TANGENTIAL BIOPSY Ordered: [facility] Test SKIN SINGLE LESION 06/05/2020 of Medici ne [code = 59378] Future Scheduled [place] DESTRUC Ordered: [facility] Test PREMALIGNANT, FIRST 06/05/2020 of Medic ine LESION(62792) [code = 24046] Future Scheduled [place] DESTRUC Ordered: [facility] ege Test PREMALIGNANT,2-14 06/05/2020 of Medicin e LESIONS(29000) [code = 21932] Future Scheduled TETANUS SHOT (ADULT) [facility] Test [code = TETANUS SHOT of Medi cine (ADULT)] Future Scheduled BMI FOLLOW UP PLAN [facility] Test [code = BMI FOLLOW of Medici ne UP PLAN] Future Scheduled HEPATITIS C [facility] Test SCREENING [code = of Medicin e HEPATITIS C SCREENING] Future Scheduled ZOSTER VACCINE (1 of [facility] Test 2) [code = ZOSTER of Medicin e VACCINE (1 of 2)] Future Scheduled FALL SCREEN [code = [facility] or [facility] Test FALL SCREEN] of Medicine Future Scheduled PNEUMOVAX >=65 [facility] Co llege Test (PPSV23) [code = of Medicine PNEUMOVAX >=65 (PPSV23)] Future Scheduled MEDICARE AWV [facility] Test (Initial) [code = of Medicin e MEDICARE AWV (Initial)] Future Scheduled FLU VACCINE > 6 [facility] C ollege Test MONTHS [code = FLU of Medici ne VACCINE > 6 MONTHS] Encounters Start End Encounter Admission Attending Care Care Encounter Source Date/Time Date/Time Type Type Clinicians Facility Department ID 2020-10-23 2020-10-23 Outpatient [facility] [id number] [facility] 00:00:00 00:00:00 2020-09-26 2020-09-26 Outpatient [facility] [id number] [facility] 00:00:00 00:00:00 2020-06-05 2020-06-05 Office DANDY Soto [id number] [facility] 14:58:48 16:22:22 Visit Stewart AMBULATOR [id number] College Y [id number] of [id number] [facility] elizabeth 300 e Results This patient has no known results.
[2022-07-08 10:15] LABS: Absolute Lymphocytes (CBC) 1.3 K/uL (0.7-4.9); Hematocrit 44.2 % (39.6-49.0); Lymphocytes % 27.3 % (15.3-44.8); MCV 87.8 fL (80-100); MPV 8.3 fL (7.6-11.3); RBC Red Blood Cell Count 5.03 M/uL (4.33-5.43)
[2022-07-08 10:32] LABS: Potassium 3.7 mmol/L (3.5-5.1); Troponin High Sensitivity 8.2 pg/mL (<58.9)
--- NOTE | 2022-07-08 11:00 | RAD REPORT ---
EXAM DESCRIPTION: Bhakti Single View07/08/2022 10:37 am CLINICAL HISTORY: Hypertension/jaw pain COMPARISON: 2020 FINDINGS: The lungs appear clear of acute infiltrate. The heart appears borderline enlarged IMPRESSION: No acute abnormalities displayed
--- NOTE | 2022-07-08 11:41 | ER ---
Nurse's Notes [facility] Name: Victor M Del Toro Age: 82 yrs Sex: Male : 1940 Arrival Date: 07/08/2022 Time: 08:52 Bed 16 Private MD: Ruperto Cates Diagnosis: Essential (primary) hypertension;Sleep related bruxism Presentation: 07/08 08:54 Chief complaint: Patient states: jaw pain on and off for a while, probably a couple jh5 weeks; having accompanied high blood pressure. I took clonidine at 0730 this morning. Pt denies CP, back pain, and arm pain, denies SOB. Coronavirus screen: Vaccine status: Patient reports receiving the 2nd dose of the covid vaccine. Client denies travel out of the [place] in the last 14 days. Ebola Screen: Patient negative for fever greater than or equal to 101.5 degrees Fahrenheit, and additional compatible Ebola Virus Disease symptoms Patient denies exposure to infectious person. Patient denies travel to an Ebola-affected area in the 21 days before illness onset. Initial Sepsis Screen: Does the patient meet any 2 criteria? No. Patient's initial sepsis screen is negative. Does the patient have a suspected source of infection? No. Patient's initial sepsis screen is negative. Risk Assessment: Do you want to hurt yourself or someone else? Patient reports no desire to harm self or others. 08:54 Method Of Arrival: Ambulatory [facility] 08:54 Acuity: EDY 3 [facility] 08:54 Onset of symptoms was July 08, 2022. ko1 Triage Assessment: 08:57 General: Appears in no apparent distress. well groomed, well developed, well nourished, [facility] Behavior is calm, cooperative, appropriate for age. Pain: Complains of pain in jaw. Historical: - Allergies: 08:57 Tetanus Vaccines and Toxoid-horse serum; jh5 - PMHx: 08:57 High Cholesterol; Hypertension; seasonal allergies; 5 - Immunization history:: Adult Immunizations up to date. - Social history:: Smoking status: Patient denies any tobacco usage or history of. - Family history:: not pertinent. - Hospitalizations: : No recent hospitalization is reported. Screenin:55 Abuse screen: Denies threats or abuse. Denies injuries from another. Nutritional ko1 screening: No deficits noted. Tuberculosis screening: No symptoms or risk factors identified. Fall Risk None identified. Assessment: 09:55 General: Appears in no apparent distress. comfortable. Pain: Complains of pain in jaw. ko1 Neuro: No deficits noted. Cardiovascular: No deficits noted. Respiratory: No deficits noted. GI: No deficits noted. : No deficits noted. EENT: No deficits noted. Derm: No deficits noted. Musculoskeletal: No deficits noted. Vital Signs: 08:54 BP 173 / 72; Pulse 66; Resp 18; Temp 98.7; Pulse Ox 100% ; Weight 113.4 kg; Height 5 5 ft. 9 in. (175.26 cm); Pain 4/10; 09:45 BP 111 / 49; Pulse 49; Pulse Ox 96% on R/A; ko1 09:55 BP 102 / 44; Pulse 48; Resp 16; Pulse Ox 100% on R/A; ko1 10:15 BP 115 / 53; Pulse 52; Pulse Ox 97% on R/A; ko1 10:30 BP 93 / 51; Pulse 42; Pulse Ox 94% on R/A; ko1 11:46 BP 95 / 51; Pulse 43; Pulse Ox 96% on R/A; ko1 08:54 Body Mass Index 36.92 (113.40 kg, 175.26 cm) [facility] ED Course: 08:52 Patient arrived in ED. mr 08:53 Ruperto Cates MD is Private Physician. mr 08:57 Triage completed. 5 08:57 Arm band placed on right wrist. [facility] 09:11 Luis Felipe Rdz MD is Attending Physician. rn 09:30 Lety Reid RN is Primary Nurse. ko1 09:55 Patient has correct armband on for positive identification. Bed in low position. Call ko1 light in reach. Side rails up X 1. Client placed on continuous cardiac and pulse oximetry monitoring. NIBP monitoring applied. equipment monitor phototypesetting on. 10:00 Inserted saline lock: 22 gauge in left forearm, using aseptic technique. Blood ko1 collected. 10:07 Basic Metabolic Panel Sent. ko1 10:08 CBC with Diff Sent. ko1 10:08 Troponin HS Sent. ko1 10:39 XRAY Chest (1 view) In Process Unspecified. EDMS 11:35 Ruperto Cates MD is Referral Physician. rn 11:46 No provider procedures requiring assistance completed. IV discontinued, intact, ko1 bleeding controlled, No redness/swelling at site. Pressure dressing applied. Administered Medications: No medications were administered Medication: 11:46 VIS not applicable for this client. ko1 Outcome: 11:40 Discharge ordered by . rn 11:46 Discharged to home ambulatory. ko1 11:46 Condition: stable 11:46 Discharge instructions given to patient, Instructed on discharge instructions, follow up and referral plans. medication usage, Demonstrated understanding of instructions, follow-up care, medications. 11:58 Patient left the ED. ko1 Signatures: Dispatcher [employer] EDDC Elham KumarLuis Felipe MD MD rn Rees, Jessica, RN RN jh5 Lety Reid RN RN ko1 Corrections: (The following items were deleted from the chart) 08:58 08:54 Chief complaint: Patient states: jaw pain on and off for a while; having jh5 accompanied high blood pressure. I took clonidine at 0700 this morning jh5
--- NOTE | 2022-07-08 11:42 | EDPHYS ---
Physician Documentation [facility] Name: Victor M Del Toro Age: 82 yrs Sex: Male : 1940 Arrival Date: 07/08/2022 Time: 08:52 Bed 16 Private MD: Ruperto Cates ED Physician Luis Felipe Rdz HPI: 07/08 11:04 This 82 yrs old Male presents to ER via Ambulatory with complaints of Jaw Pain, High rn Blood Pressure. 11:04 The patient has elevated blood pressure and discovered this at home, with a home rn device. Onset: The symptoms/episode began/occurred 2 week(s) ago. Modifying factors: The symptoms are alleviated by prescription meds. Associated signs and symptoms: Pertinent negatives: chest pain, dyspnea, headache, visual changes, vomiting, weakness. Severity of symptoms: At its worst the blood pressure was moderate, in the emergency department the blood pressure is improved. The patient has not experienced similar symptoms in the past. The patient has not recently seen a physician. Pt reports jaw pain, bilaterally, intermittent for weeks. No chest pain and sob. NO abd pain. + HTN. Reports grinds his teeth at night and wondering if that is happening. No fever. NO trauma. . Historical: - Allergies: 08:57 Tetanus Vaccines and Toxoid-horse serum; jh5 - PMHx: 08:57 High Cholesterol; Hypertension; seasonal allergies; jh5 - Immunization history:: Adult Immunizations up to date. - Social history:: Smoking status: Patient denies any tobacco usage or history of. - Family history:: not pertinent. - Hospitalizations: : No recent hospitalization is reported. ROS: 11:04 Constitutional: Negative for fever, chills, and weight loss, Eyes: Negative for injury, rn pain, redness, and discharge, ENT: + bilateral jaw pain Neck: Negative for injury, pain, and swelling, Cardiovascular: Negative for chest pain, palpitations, and edema, Respiratory: Negative for shortness of breath, cough, wheezing, and pleuritic chest pain, Abdomen/GI: Negative for abdominal pain, nausea, vomiting, diarrhea, and constipation, Back: Negative for injury and pain, MS/Extremity: Negative for injury and deformity, Skin: Negative for injury, rash, and discoloration, Neuro: Negative for headache, weakness, numbness, tingling, and seizure. Exam: 11:04 Constitutional: This is a well developed, well nourished patient who is awake, alert, rn and in no acute distress. Head/Face: Normocephalic, atraumatic. Eyes: Periorbital areas with no swelling, redness, or edema. ENT: No oral swelling, caps in place, no erythema Neck: Trachea midline. No Meningismus. Cardiovascular: Regular rate and rhythm. No pulse deficits. Respiratory: No increased work of breathing, no retractions or nasal flaring. Abdomen/GI: Soft, non-tender Skin: Warm, dry MS/ Extremity: Pulses equal, no cyanosis. Neuro: Awake and alert, GCS 15, oriented to person, place, time, and situation. Cranial nerves II-XII grossly intact. Motor strength 5/5 in all extremities. Sensory grossly intact. Cerebellar exam normal. Normal gait. 11:24 ECG was reviewed by the Attending Physician. rn Vital Signs: 08:54 BP 173 / 72; Pulse 66; Resp 18; Temp 98.7; Pulse Ox 100% ; Weight 113.4 kg; Height 5 5 ft. 9 in. (175.26 cm); Pain 4/10; 09:45 BP 111 / 49; Pulse 49; Pulse Ox 96% on R/A; ko1 09:55 BP 102 / 44; Pulse 48; Resp 16; Pulse Ox 100% on R/A; ko1 10:15 BP 115 / 53; Pulse 52; Pulse Ox 97% on R/A; ko1 10:30 BP 93 / 51; Pulse 42; Pulse Ox 94% on R/A; ko1 11:46 BP 95 / 51; Pulse 43; Pulse Ox 96% on R/A; ko1 08:54 Body Mass Index 36.92 (113.40 kg, 175.26 cm) [facility] MDM: 09:11 Patient medically screened. rn 11:34 Differential diagnosis: Malignant HTN, teeth grinding, referred pain, cardiac etiology. rn Data reviewed: vital signs, nurses notes, lab test result(s), EKG, radiologic studies, plain films, and as a result, I will discharge patient. Counseling: I had a detailed discussion with the patient and/or guardian regarding: the historical points, exam findings, and any diagnostic results supporting the discharge/admit diagnosis, lab results, radiology results, the need for outpatient follow up, to return to the emergency department if symptoms worsen or persist or if there are any questions or concerns that arise at home. Special discussion: I discussed with the patient/guardian in detail that at this point there is no indication for admission to the hospital. It is understood, however, that if the symptoms persist or worsen the patient needs to return immediately for re-evaluation. Based on the history and exam findings, there is no indication for further emergent testing or inpatient evaluation. I discussed with the patient/guardian the need to see the primary care provider for further evaluation of the symptoms. ED course: NO chest pain, neg trop, no ischemia on ECG, will dc home with continuation of BP medication and pcp f/u, return precautions given and understood. Recommend nightguard/mouth guard at night as may be grinding and bruxism. . 11:41 ED course: Pt took clonidine prior to arrival. . rn 07/08 09:36 Order name: Basic Metabolic Panel; Complete Time: : rn 07/08 09:36 Order name: CBC with Diff; Complete Time: : rn 07/08 09:36 Order name: Troponin HS; Complete Time: : rn 07/08 09:36 Order name: XRAY Chest (1 view); Complete Time: 11:23 rn 07/08 09:36 Order name: EKG; Complete Time: :37 rn 07/08 09:36 Order name: Cardiac monitoring; Complete Time: :44 rn 07/08 09:36 Order name: EKG - Nurse/Tech; Complete Time: :44 rn 07/08 09:36 Order name: IV Saline Lock; Complete Time: : rn 07/08 09:36 Order name: Labs collected and sent; Complete Time: : rn 07/08 09:36 Order name: O2 Per Protocol; Complete Time: :44 rn 07/08 09:36 Order name: O2 Sat Monitoring; Complete Time: :44 rn EC:24 Rate is 48 beats/min. Rhythm is regular. QRS [place] is Normal. HI interval is normal. QRS rn interval is normal. QT interval is normal. No Q waves. T waves are Normal. No ST changes noted. Clinical impression: Sinus bradycardia. Interpreted by me. Reviewed by me. Administered Medications: No medications were administered Disposition Summary: 07/08/22 11:40 Discharge Ordered Location: Home rn Condition: Stable rn Diagnosis - Essential (primary) hypertension rn - Sleep related bruxism rn Followup: rn - With: Ruperto Cates MD - When: As needed - Reason: Recheck today's complaints, Re-evaluation by your physician Discharge Instructions: - Discharge Summary Sheet rn - Hypertension, Adult rn - Teeth Grinding rn - Managing Your Hypertension rn Forms: - Medication Reconciliation Form rn - Thank You Letter rn - Antibiotic quality assurance intern - Prescription Opioid Use rn Signatures: Dispatcher [employer] Luis Felipe Bunn MD MD rn Magda Eng RN RN jh5
[2022-07-08 12:02] VITALS: TEMP 98.7
[2022-07-08 12:13] VITALS: BP 95/51; O2SAT 96
--- NOTE | 2022-07-09 15:59 | EKG ---
Test Date: 2022-07-08 Test Time: 09:38:39 Book Canvasser: GRACE MEASUREMENT RESULTS: Intervals: Rate: 48 MD: 200 QRSD: 90 QT: 432 QTc: 385 [place]: P: 48 MD: 200 QRS: 11 T: 25 INTERPRETIVE STATEMENTS: Marked sinus bradycardia Abnormal ECG Compared to ECG 10/23/2021 22:41:41 No significant changes Electronically Signed On 07-09-22 15:58:10 SURGICAL NURSE by Lamonte Robbins
== END 2022-07-08 11:58 | disposition home or self-care (01) ==
LOC: ER 08:50
DX: I10 Essential (primary) hypertension (principal); G47.63 Sleep related bruxism; E78.00 Pure hypercholesterolemia, unspecified; Z88.7 Allergy status to serum and vaccine
CPT/HCPCS: 36415; 71045; 80048; 84484; 85025; 93005; 99284

== ENCOUNTER 2023-02-12 08:09 | Emergency (ER) | payer OTHER ==
--- OUTSIDE RECORDS SUMMARY | 2023-02-12 08:12 | XMS REPORT | Continuity of Care Document ---
:[address] 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 Social History Social Habit Start Date Stop Date Quantity Comments Source History of Cigarette Smoker [facility] Isabelle espinoza tobacco use of Medicine Exposure to Not sure [facility] Kamilla thomas SARS-CoV-2 of Medicine (event) Tobacco use and 2020-06-05 2020-06-05 Never used [facility] Co [facility]lege exposure 00:00:00 00:00:00 of Medicine Alcohol intake 2020-06-05 2020-06-05 Current drinker [facility] 00:00:00 00:00:00 of alcohol of Medicine (finding) Tobacco Comment 2011-06-21 2011-06-21 pt. quit 39 yrs. [facility] 00:00:00 00:00:00 ago of Medicine Sex Assigned At [address] [facility] Smoking Status Start Date Stop Date Source Former smoker 2020-06-05 00:00:00 2020-06-05 00:00:00 [facility] Isabelle espinoza of Medicine Medications Ordered Filled Start Stop Current Ordering Indication Dosage Frequency Signature Comments Components Source Medication Medication Date Date Medication? Clinician (SIG) Name Name Pantoprazol 2019-08 Yes Take by [place] [facility] Sodium 0-08 mouth. [place] (PROTONIX) 20:18: of 40 MG PACK 41 Medicin e flunisolide 2019-08 Yes 2{spray Inhale 2 [facility] (NASALIDE) 0-08 } Sprays by [facility] chowdhury 25 MCG/ACT 20:18: nose every o f (0.025%) 41 12 hours. Medici n nasal spray e dicyclomine 2019-08 Yes 20mg Take 20 mg [facility] (BENTYL) 20 0-08 by mouth [facility] ege MG tablet 20:18: every 6 of 41 hours. Medicin e cetirizine, 2019-08 Yes 10mg Take 10 mg [facility] ZYRTEC, 0-08 by mouth [place] (ZYRTEC 20:18: once. of ALLERGY) 10 41 Medicin MG tablet e Multiple 2019-08 Yes Take by [facility] Vitamins-Mi 0-08 mouth. Colleg e nerals 20:18: of (CENTRUM 41 Medicin SILVER) e TABS Rosine-3 2019-08 Yes Take by [facility] Fatty Acids 0-08 mouth. Colleg e (FISH OIL) 20:18: of 1000 MG 41 Medicin CAPS e Aspirin 2019-08 Yes Take by [facility] (ASPIR-81) 0-08 mouth. [place] 81 MG TBEC 20:18: of 41 Medicin e diphenhydrA 2019-08 Yes 25mg Take 25 mg [facility] MINE 0-08 by mouth [place] (BENADRYL) 20:18: every 6 of 25 MG 41 hours as Medicin tablet needed for e Sleep. ketoconazol 2017-08 Yes [id number] Apply [facility] (NIZORAL) 0-24 topically Col lege 2 % cream 00:00: twice a of 00 day as Medicin needed e valsartan Yes 160mg Take 160 [place] (DIOVAN) 2-05 mg by [place] 160 MG 20:48: mouth of tablet 43 daily. Medicin e torsemide Yes 20mg Take 20 mg [facility] (DEMADEX) 2-05 by mouth Colleg e 20 MG 20:48: daily. of tablet 43 Medicin e diltiazem Yes TAKE ONE [place] [facility] (CARDIZEM 9-27 CAPSULE BY [facility] chowdhury CD) 180 MG 00:00: MOUTH of ER capsule 00 EVERY DAY Medi elizabeth e sildenafil Yes Use as [facility] citrate 4-18 [facility] (VIAGRA) 00:00: of 100 MG 00 Medicin tablet e Immunizations Ordered Immunization Filled Immunization Date Status Commen ts Source Name Name Covid-19 Vaccine 2020-10-[address] [facility] (PF) 12yr+ 00:00:00 Medical C enter (Pfizer/BioNTech)(IM M601) Covid-19 Vaccine 2020-10-[address] [facility] MRNA (PF) 12yr+ 00:00:00 Medical C enter (Pfizer/BioNTech)(IM M601) Covid-19 Vaccine 2020-10-[address] [facility] M[facility] (PF) 12yr+ 00:00:00 Medical C enter (Pfizer/BioNTech)(IM M601) Covid-19 Vaccine 2020-10-[address] [facility] MRNA (PF) 12yr+ 00:00:00 Medical C enter (Pfizer/BioNTech)(IM M601) Covid-19 Vaccine 2020-10-[address] [facility] MRNA (PF) 12yr+ 00:00:00 Medical C enter (Pfizer/BioNTech)(IM M601) Covid-19 Vaccine 2020-10-[address] [facility] [...] Source Systolic blood 2020-06-05 20:16:00 146 mm[Hg] [facility] pressure Medicine Diastolic blood 2020-06-05 20:16:00 71 mm[Hg] [facility] Medicine Heart rate 2020-06-05 20:16:00 65 /min [facility] Body height 2020-06-05 20:16:00 175.3 cm [facility] Body weight 2020-06-05 20:16:00 102.059 kg [facility] BMI 2020-06-05 20:16:00 33.23 kg/m2 [facility] Procedures This patient has no known procedures. Plan of Care Planned Activity Planned Date Details Comments Source Future Scheduled 2023-04-[address] [facility] 00:00:00 (Season Ended) [code Medical Center = Influenza Vaccine (Season Ended)] Future Scheduled 2022-08-[address] [facility] 00:00:00 (12+) [code = Medical Center DEPRESSION SCREENING (12+)] Future Scheduled 2022-08-29 FALLS RISK SCREENING [facility] 00:00:00 [code = FALLS RISK Medical C enter SCREENING] Future Scheduled 2022-08-[address] [facility] 00:00:00 (12+) [code = Medical Center DEPRESSION SCREENING (12+)] Future Scheduled 2022-08-29 FALLS RISK SCREENING [facility] 00:00:00 [code = FALLS RISK Medical C enter SCREENING] Future Scheduled 2022-08-[address] [facility] 00:00:00 (12+) [code = Medical Center DEPRESSION SCREENING (12+)] Future Scheduled 2022-08-29 FALLS RISK SCREENING [facility] 00:00:00 [code = FALLS RISK Medical C enter SCREENING] Future Scheduled 2022-04-[address] [facility] 00:00:00 (#1) [code = Medical Center INFLUENZA VACCINE (#1)] Future Scheduled 2022-04-[address] [facility] 00:00:00 (#1) [code = Medical Center INFLUENZA VACCINE (#1)] Future Scheduled 2022-04-[address] [facility] 00:00:00 (#1) [code = Medical Center INFLUENZA VACCINE (#1)] Future Scheduled 2022-04-[address] [facility] 00:00:00 (#1) [code = Medical Center INFLUENZA VACCINE (#1)] Future Scheduled 2022-04-[address] [facility] 00:00:00 (#1) [code = Medical Center INFLUENZA VACCINE (#1)] Future Scheduled 2021-08-[address] [facility] 00:00:00 (12+) [code = Medical Center DEPRESSION SCREENING (12+)] Future Scheduled 2021-08-29 FALLS RISK SCREENING [facility] 00:00:00 [code = FALLS RISK Medical C enter SCREENING] Future Scheduled 2021-08-[address] [facility] 00:00:00 (12+) [code = Medical Center DEPRESSION SCREENING (12+)] Future Scheduled 2021-08-29 F[address]S RISK SCREENING [facility] 00:00:00 [code = FALLS RISK Medical C enter SCREENING] Future Scheduled 2021-08-[address] [facility] 00:00:00 (12+) [code = Medical Center DEPRESSION SCREENING (12+)] Future Scheduled 2021-08-29 F[address]K SCREENING [facility] 00:00:00 [code = FALLS RISK Medical C enter SCREENING] Future Scheduled 2021-03-22 COVID-19 VACCINE ([address] [facility] 00:00:00 - Booster for Pfizer Medical Center series) [code = COVID-19 VACCINE (3 - Booster for Pfizer series)] Future Scheduled 2021-03-22 COVID-19 VACCINE ([address] [facility] 00:00:00 - Booster for Pfizer Medical Center series) [code = COVID-19 VACCINE (3 - Booster for Pfizer series)] Future Scheduled 2021-03-22 COVID-19 VACCINE ([address] [facility] 00:00:00 - Booster for Pfizer Medical Center series) [code = COVID-19 VACCINE (3 - Booster for Pfizer series)] Future Scheduled 2021-03-22 COVID-19 VACCINE ([address] [facility] 00:00:00 - Booster for Pfizer Medical Center series) [code = COVID-19 VACCINE (3 - Booster for Pfizer series)] Future Scheduled 2021-03-22 COVID-19 VACCINE ([address] [facility] 00:00:00 - Booster for Pfizer Medical Center series) [code = COVID-19 VACCINE (3 - Booster for Pfizer series)] Future Scheduled 2020-12-18 COVID-19 VACCINE ([address] [facility] 00:00:00 - Booster for Pfizer Medical Center series) [code = COVID-19 VACCINE (3 - Booster for Pfizer series)] Future Scheduled 2006 PNEUMOCOCCAL 65+ YRS [facility] 00:00:00 (1 - PCV) [code = Medical Ce nter PNEUMOCOCCAL 65+ YRS (1 - PCV)] Future Scheduled 2006 PNEUMOCOCCAL 65+ YRS [facility] 00:00:00 (1 - PCV) [code = Medical Ce nter PNEUMOCOCCAL 65+ YRS (1 - PCV)] Future Scheduled 2006 PNEUMOCOCCAL 65+ YRS [facility] 00:00:00 (1 - PCV) [code = Medical Ce nter PNEUMOCOCCAL 65+ YRS (1 - PCV)] Future Scheduled 2006 PNEUMOCOCCAL 65+ YRS [facility] 00:00:00 (1 - PCV) [code = Medical Ce nter PNEUMOCOCCAL 65+ YRS (1 - PCV)] Future Scheduled 2006 PNEUMOCOCCAL 65+ YRS [facility] 00:00:00 (1 - PCV) [code = Medical Ce nter PNEUMOCOCCAL 65+ YRS (1 - PCV)] Future Scheduled 2006 PNEUMOCOCCAL 65+ YRS [facility] 00:00:00 (1 - PCV) [code = Medical Ce nter PNEUMOCOCCAL 65+ YRS (1 - PCV)] Future Scheduled 1991 SHINGLES VACCINES ([address] [facility] 00:00:00 of 2) [code = Medical Center SHINGLES VACCINES (1 of 2)] Future Scheduled 1991 SHINGLES VACCINES ([address] [facility] 00:00:00 of 2) [code = Medical Center SHINGLES VACCINES (1 of 2)] Future Scheduled 1991 SHINGLES VACCINES ([address] [facility] 00:00:00 of 2) [code = Medical Center SHINGLES VACCINES (1 of 2)] Future Scheduled 1991 SHINGLES VACCINES ([address] [facility] 00:00:00 of 2) [code = Medical Center SHINGLES VACCINES (1 of 2)] Future Scheduled 1991 SHINGLES VACCINES ([address] [facility] 00:00:00 of 2) [code = Medical Center SHINGLES VACCINES (1 of 2)] Future Scheduled 1991 SHINGLES VACCINES ([address] [facility] 00:00:00 of 2) [code = Medical Center SHINGLES VACCINES (1 of 2)] Future Scheduled 1960 DTAP/TDAP/TD [facility] 00:[facility] VACCINES (1 - Tdap) Medical Center [code = DTAP/TDAP/TD VACCINES (1 - Tdap)] Future Scheduled 1960 DTAP/TDAP/TD [facility] 00:00:00 VACCINES (1 - Tdap) Medical Center [code = DTAP/TDAP/TD VACCINES (1 - Tdap)] Future Scheduled 1960 DTAP/TDAP/TD [facility] 00:00:00 VACCINES (1 - Tdap) Medical Center [code = DTAP/TDAP/TD VACCINES (1 - Tdap)] Future Scheduled 1960 DTAP/TDAP/TD [facility] 00:00:00 VACCINES (1 - Tdap) Medical Center [code = DTAP/TDAP/TD VACCINES (1 - Tdap)] Future Scheduled 1960 DTAP/TDAP/TD [facility] 00:00:00 VACCINES (1 - Tdap) Medical Center [code = DTAP/TDAP/TD VACCINES (1 - Tdap)] Future Scheduled 1960 DTAP/TDAP/TD [facility] 00:00:00 VACCINES (1 - Tdap) Medical Center [code = DTAP/TDAP/TD VACCINES (1 - Tdap)] Future Scheduled [address] [facility] 00:00:00 Counseling and Medical Cente r Screening (12+) [code = Tobacco Cessation Counseling and Screening (12+)] Future Scheduled [address] [facility] 00:00:00 Counseling and Medical Cente r Screening (12+) [code = Tobacco Cessation Counseling and Screening (12+)] Future Scheduled [address] [facility] 00:00:00 Counseling and Medical Cente r Screening (12+) [code = Tobacco Cessation Counseling and Screening (12+)] Future Scheduled [address] [facility] 00:00:00 Counseling and Medical Cente r Screening (12+) [code = Tobacco Cessation Counseling and Screening (12+)] Future Scheduled [address] [facility] Test 00:00:00 Counseling and Medical Cente r Screening (12+) [code = Tobacco Cessation Counseling and Screening (12+)] Future Scheduled DE TANGENTIAL BIOPSY Ordered: [facility] Test SKIN SINGLE LESION 06/05/2020 of Medici ne [code = 97411] Future Scheduled DE DESTRUC Ordered: [facility] ege Test PREMALIGNANT, FIRST 06/05/2020 of Medic ine LESION(22173) [code = 48084] Future Scheduled DE DESTRUC Ordered: [facility]ge Test PREMALIGNANT,2-14 06/05/2020 of Medicin e LESIONS(04924) [code = 10321] Future Scheduled TETANUS SHOT (ADULT) [facility] Test [code = TETANUS SHOT of Medi cine (ADULT)] Future Scheduled BMI FOLLOW UP PLAN [facility] Test [code = BMI FOLLOW of Medici ne UP PLAN] Future Scheduled HEPATITIS C [facility] Test SCREENING [code = of Medicin e HEPATITIS C SCREENING] Future Scheduled ZOSTER VACCINE (1 of [facility] Test 2) [code = ZOSTER of Medicin e VACCINE (1 of 2)] Future Scheduled FALL SCREEN [code = [facility] Test FALL SCREEN] of Medicine Future Scheduled PNEUMOVAX >=65 [facility] Co [facility]lege Test (PPSV23) [code = of Medicine PNEUMOVAX >=65 (PPSV23)] Future Scheduled MEDICARE AWV [facility] Test (Initial) [code = of Medicin e MEDICARE AWV (Initial)] Future Scheduled FLU VACCINE > 6 [facility] alexis Test MONTHS [code = FLU of Medici ne VACCINE > 6 MONTHS] Encounters Start End Encounter Admission Attending Care Care Encounter Source Date/Time Date/Time Type Type Clinicians Facility Department ID 2020-10-23 2020-10-23 Outpatient [facility] [id number] [facility] 00:00:00 00:00:00 2020-09-26 2020-09-26 Outpatient [facility] [id number] [facility] 00:00:00 00:00:00 2020-06-05 2020-06-05 Office DANDY Soto [id number] [facility] 14:58:48 16:22:22 Visit Stewart AMBULATOR [id number] College Y [id number] of [id number] [facility] elizabeth 300 e Results This patient has no known results.
[2023-02-12 08:31] LABS: Absolute Lymphocytes (CBC) 1.7 K/uL (0.7-4.9); Hematocrit 46.2 % (39.6-49.0); Lymphocytes % 34.2 % (15.3-44.8); MCV 89.3 fL (80-100); MPV 8.2 fL (7.6-11.3); RBC Red Blood Cell Count 5.18 M/uL (4.33-5.43)
[2023-02-12] MEDS ORDERED: ACETAMINOPHEN 500 MG TAB ONE (08:36)
[2023-02-12 08:55] LABS: Potassium 3.7 mEq/L (3.5-5.1)
[2023-02-12 08:56] LABS: Magnesium 2.2 mg/dL (1.6-2.4); Troponin High Sensitivity 8.3 pg/mL (<58.9)
--- NOTE | 2023-02-12 09:00 | RAD REPORT ---
EXAM DESCRIPTION: CT - Head Brain Wo Cont - 02/12/2023 8:45 am CLINICAL HISTORY: HEADACHE Headache, drowsiness COMPARISON: Head Brain Wo Cont dated 10/23/2021; Head Brain Wo Cont dated 07/12/2020 TECHNIQUE: All CT scans are performed using dose optimization technique as appropriate and may inclu de automated exposure control or mA/KV adjustment according to patient size. FINDINGS: No intracranial hemorrhage, hydrocephalus or extra-axial fluid collection.Mild brain atrop hy noted.No areas of brain edema or evidence of midline shift. Mild fluid is seen in both maxillary antra. The paranasal sinuses and mastoids otherwise clear. The c alvarium is intact. IMPRESSION: No acute intracranial abnormality.
--- NOTE | 2023-02-12 09:00 | RAD REPORT ---
EXAM DESCRIPTION: RAD - Chest Single View - 02/12/2023 8:33 am CLINICAL HISTORY: PAIN Chest pain. COMPARISON: Chest Single View dated 07/08/2022; Chest Single View dated 10/23/2021; Chest Single View dated 11/08/2020; Chest Single View dated 07/12/2020 FINDINGS: Portable technique limits examination quality. The lungs are grossly clear. The heart is mildly to moderately enlarged. No displaced fractures. IMPRESSION: No acute intrathoracic process suspected.
--- NOTE | 2023-02-12 09:49 | ER ---
Nurse's Notes [facility] Name: Victor M Del Toro Age: 82 yrs Sex: Male : 1940 Arrival Date: 02/12/2023 Time: 08:09 Bed 14 Private MD: Diagnosis: Essential (primary) hypertension;Headache Presentation: 02/12 08:19 Chief complaint: Patient states: high blood pressure and headache since yesterday. ss Coronavirus screen: Client denies travel out of the [place] in the last 14 days. Ebola Screen: Patient denies exposure to infectious person. Patient denies travel to an Ebola-affected area in the 21 days before illness onset. Initial Sepsis Screen: Does the patient meet any 2 criteria? No. Patient's initial sepsis screen is negative. Does the patient have a suspected source of infection? No. Patient's initial sepsis screen is negative. Risk Assessment: Do you want to hurt yourself or someone else? Patient reports no desire to harm self or others. Onset of symptoms was February 11, 2023. 08:19 Method Of Arrival: Ambulatory ss 08:19 Acuity: EDY 2 ss Triage Assessment: 09:00 Headache History: The patient has had previous headaches and this one is similar to ko1 previous episodes. General: Appears in no apparent distress. comfortable, Behavior is calm, cooperative, appropriate for age. Pain: Pain began gradually, Also complains of. Pain: Complains of pain in forehead. Historical: - Allergies: 08:22 Tetanus Vaccines and Toxoid-horse serum; ss - PMHx: 08:22 High Cholesterol; Hypertension; seasonal allergies; ss - Immunization history:: Adult Immunizations up to date. - Social history:: Smoking status: Patient denies any tobacco usage or history of. Screenin:30 [facility] ED Fall Risk Assessment (Adult) History of falling in the last 3 months, ko1 including since admission No falls in past 3 months (0 pts) Confusion or Disorientation No (0 pts) Intoxicated or Sedated No (0 pts) Impaired Gait No (0 pts) Mobility Assist Device Used No (0 pt) Altered Elimination No (0 pt) Score/Fall Risk Level 0 - 2 = Low Risk Oriented to surroundings, Maintained a safe environment, Educated pt \T\ family on fall prevention, incl call for assistance when getting out of bed, Assessed \T\ reinforced patient's understanding of fall precautions, Provided non-skid footwear, Hourly rounding (assess needs \T\ fall precautionary measures) done, Used ambulatory aids as needed (educated on \T\ assisted with), Used gait belt as appropriate. Abuse screen: Denies threats or abuse. Denies injuries from another. Nutritional screening: No deficits noted. Tuberculosis screening: No symptoms or risk factors identified. Assessment: 08:30 General: Appears in no apparent distress. comfortable, Behavior is calm, cooperative, ko1 appropriate for age. Pain: Complains of pain in forehead Pain currently is 6 out of 10 on a pain scale. Quality of pain is described as pressure. Neuro: No deficits noted. Cardiovascular: Reports high blood pressure. Respiratory: No deficits noted. GI: No deficits noted. : No deficits noted. EENT: No deficits noted. Derm: No deficits noted. Musculoskeletal: No deficits noted. 09:00 Reassessment: Patient appears in no apparent distress at this time. Patient and/or ko1 family updated on plan of care and expected duration. Pain level reassessed. Patient is alert, oriented x 3, equal unlabored respirations, skin warm/dry/pink. Patient states feeling better. Vital Signs: 08:19 BP 202 / 84; Pulse 49; Resp 16; Temp 98.9(TE); Pulse Ox 98% ; Weight 113.4 kg; Height 5 ss ft. 9 in. ; Pain 6/10; 08:31 BP 175 / 67; Pulse 46; Resp 18; Pulse Ox 99% ; ko1 08:37 BP 156 / 61; Pulse 43; Resp 16; Pulse Ox 97% ; ko1 09:22 BP 133 / 60; Pulse 42; Resp 16; Pulse Ox 95% ; ko1 09:37 BP 144 / 60; Pulse 42; Resp 18; Pulse Ox 95% on R/A; ko1 08:19 Body Mass Index 36.92 (113.40 kg, 175.26 cm) ss 08:19 Pain Scale: Adult ss ED Course: 08:12 Patient arrived in ED. [id number] 08:12 Mtailda Hobson FNP-C is PHCP. kb 08:12 Luis Felipe Rdz MD is Attending Physician. kb 08:14 Lety Reid RN is Primary Nurse. ko1 08:16 Patient has correct armband on for positive identification. Placed in gown. Bed in low mm9 position. Call light in reach. Side rails up X 1. Warm blanket given. Client placed on continuous cardiac and pulse oximetry monitoring. NIBP monitoring applied. shelter monitor on. Pulse ox on. NIBP on. 08:22 Triage completed. ss 08:22 Arm band placed on right wrist. ss 08:24 Inserted saline lock: 20 gauge in right forearm, using aseptic technique. Blood sg5 collected. 08:30 No provider procedures requiring assistance completed. ko1 08:35 XRAY Chest (1 view) In Process Unspecified. EDMS 08:46 Basic Metabolic Panel Sent. ko1 08:46 Magnesium Sent. ko1 08:46 NT PRO-BNP Sent. ko1 08:46 Troponin HS Sent. ko1 08:47 CT Head Brain wo Cont In Process Unspecified. EDMS 09:49 IV discontinued, intact, bleeding controlled, No redness/swelling at site. Pressure ko1 dressing applied. Administered Medications: 08:31 Drug: Acetaminophen PO 1000 mg Route: PO; sg5 Medication: 08:37 VIS not applicable for this client. ko1 Outcome: 09:48 Discharge ordered by . kb 09:55 Discharged to home ambulatory. ko1 09:55 Condition: stable 09:55 Discharge instructions given to patient, Instructed on discharge instructions, follow up and referral plans. medication usage, Demonstrated understanding of instructions, follow-up care, medications. 09:58 Patient left the ED. ko1 Signatures: Dispatcher [employer] EDPA Matilda Hobson, ENTRY LEVEL SALES ASSOCIATE-C ENTRY LEVEL SALES ASSOCIATE-CkSandy Glez, MURALI CARRION Aga Motley [id number] Lety Reid, MURALI RN [email or web address] Nessa Wiggins Leanna Emery RN RN [id number]
--- NOTE | 2023-02-12 09:49 | EDPHYS ---
Physician Documentation [facility] Name: Victor M Del Toro Age: 82 yrs Sex: Male : 1940 Arrival Date: 02/12/2023 Time: 08:09 Bed 14 Private MD: ED Physician Luis Felipe Rdz HPI: 02/12 08:27 This 82 yrs old Male presents to ER via Ambulatory with complaints of High Blood kb Pressure, LAST BP READING 202/79, Headache. 08:27 The patient has elevated blood pressure and discovered this at home, with a home kb device. Onset: The symptoms/episode began/occurred this morning. Associated signs and symptoms: Pertinent positives: headache, Pertinent negatives: chest pain, dizziness, dyspnea, lightheadedness, nausea, visual changes, vomiting, weakness. Severity of symptoms: At its worst the blood pressure was 202 mm Hg, in the emergency department the blood pressure is unchanged. The patient has not experienced similar symptoms in the past. The patient has not recently seen a physician. 09:48 Pt reports high blood pressure and headache that started this morning. Denies chest kb pain, dizziness. States he took his regular BP medication about one hour [employer]. Historical: - Allergies: 08:22 Tetanus Vaccines and Toxoid-horse serum; ss - PMHx: 08:22 High Cholesterol; Hypertension; seasonal allergies; ss - Immunization history:: Adult Immunizations up to date. - Social history:: Smoking status: Patient denies any tobacco usage or history of. ROS: 08:26 Constitutional: Negative for fever, chills, and weight loss. kb 08:26 Neuro: Positive for headache. 08:26 All other systems are negative. Exam: 08:26 Constitutional: This is a well developed, well nourished patient who is awake, alert, kb and in no acute distress. Head/Face: Normocephalic, atraumatic. ENT: Moist Mucous membranes Cardiovascular: Regular rate and rhythm with a normal S1 and S2. No gallops, murmurs, or rubs. No pulse deficits. Respiratory: Respirations even and unlabored. No increased work of breathing. Talking in full sentences Abdomen/GI: Soft, non-tender. No distention Skin: Warm, dry with normal turgor. Normal color. MS/ Extremity: Pulses equal, no cyanosis. Neurovascular intact. Full, normal range of motion. Neuro: Awake and alert, GCS 15, oriented to person, place, time, and situation. Moves all extremities. Normal gait. Vital Signs: 08:19 BP 202 / 84; Pulse 49; Resp 16; Temp 98.9(TE); Pulse Ox 98% ; Weight 113.4 kg; Height 5 ss ft. 9 in. ; Pain 6/10; 08:31 BP 175 / 67; Pulse 46; Resp 18; Pulse Ox 99% ; ko1 08:37 BP 156 / 61; Pulse 43; Resp 16; Pulse Ox 97% ; ko1 09:22 BP 133 / 60; Pulse 42; Resp 16; Pulse Ox 95% ; ko1 09:37 BP 144 / 60; Pulse 42; Resp 18; Pulse Ox 95% on R/A; ko1 08:19 Body Mass Index 36.92 (113.40 kg, 175.26 cm) ss 08:19 Pain Scale: Adult ss MDM: 08:12 Patient medically screened. kb 08:26 Differential diagnosis: hypertensive crisis. Data reviewed: vital signs, nurses notes. kb 09:41 Management of patient was discussed with the following: Dr Rdz. Care significantly kb affected by the following chronic conditions: Hypertension. Counseling: I had a detailed discussion with the patient and/or guardian regarding: the historical points, exam findings, and any diagnostic results supporting the discharge/admit diagnosis, lab results, radiology results, the need for outpatient follow up, a family practitioner, to return to the emergency department if symptoms worsen or persist or if there are any questions or concerns that arise at home. 09:47 ED course: Pt reports he is feeling better, BP decreased. Pt has appt with Dr Sonia josue on Tuesday for his 6 month checkup and will keep appt. . 02/12 08:18 Order name: Basic Metabolic Panel; Complete Time: : kb 02/12 08:18 Order name: CBC with Diff; Complete Time: 08:49 kb 02/12 08:18 Order name: Magnesium; Complete Time: : kb 02/12 08:18 Order name: NT PRO-BNP; Complete Time: 09:27 kb 02/12 08:18 Order name: Troponin HS; Complete Time: :27 kb 02/12 08:18 Order name: XRAY Chest (1 view); Complete Time: 09: kb 02/12 08:31 Order name: CT Head Brain wo Cont; Complete Time: 09:27 kb 02/12 08:18 Order name: EKG; Complete Time: 08:19 kb 02/12 08:18 Order name: Cardiac monitoring; Complete Time: 08:19 kb 02/12 08:18 Order name: EKG - Nurse/Tech; Complete Time: 08:19 kb 02/12 08:18 Order name: IV Saline Lock; Complete Time: 08:46 kb 02/12 08:18 Order name: Labs collected and sent; Complete Time: 08:46 kb 02/12 08:18 Order name: O2 Per Protocol; Complete Time: 08:19 kb 02/12 08:18 Order name: O2 Sat Monitoring; Complete Time: 08:19 kb Administered Medications: 08:31 Drug: Acetaminophen PO 1000 mg Route: PO; sg5 Disposition: 14:23 Co-signature as Attending Physician, Luis Felipe Rdz MD I reviewed the patient's care rn provided by the Advanced Practice Provider and agree with the diagnosis and treatment plan. Disposition Summary: 02/12/23 09:48 Discharge Ordered Location: Home kb Condition: Stable kb Diagnosis - Essential (primary) hypertension kb - Headache kb Followup: kb - With: Emergency Department - When: As needed - Reason: Worsening of condition Followup: kb - With: Private Physician - When: 2 - 3 days - Reason: Recheck today's complaints, Continuance of care, Re-evaluation by your physician Discharge Instructions: - Discharge Summary Sheet kb - Hypertension, Adult, Vosk-ho-Etyu kb Forms: - Medication Reconciliation Form kb - Thank You Letter kb - Antibiotic Education kb - Prescription Opioid Use kb Signatures: Dispatcher [employer] Matilda Lackey, PHYSICIAN INTERVENTIONAL CARDIOLOGIST-C PHYSICIAN INTERVENTIONAL CARDIOLOGIST-Ckb Luis Felipe Rdz MD MD rn Blanchard, Shelby, RN RN ss Lety Reid, RN RN ko1 Leanna Kwong RN RN sg5
[2023-02-12 10:12] VITALS: TEMP 98.9
[2023-02-12 10:25] VITALS: O2SAT 95
[2023-02-12 10:26] VITALS: BP 144/60
--- NOTE | 2023-02-14 17:54 | EKG ---
Test Date: 2023-02-12 Test Time: 08:25:05 Migration Agent: GRACE MEASUREMENT RESULTS: Intervals: Rate: 44 MD: QRSD: 78 QT: 468 QTc: 400 Victor: P: MD: QRS: 17 T: 26 INTERPRETIVE STATEMENTS: Sinus bradycardia T wave abnormality, consider inferior ischemia Abnormal ECG Compared to ECG 07/08/2022 09:38:39 T-wave abnormality now present Possible ischemia now present Electronically Signed On 02-14-23 17:50:47 CDT by Lamonte Robbins
== END 2023-02-12 09:58 | disposition home or self-care (01) ==
LOC: ER 08:09
DX: I10 Essential (primary) hypertension (principal); R51.9 Headache, unspecified; E78.00 Pure hypercholesterolemia, unspecified; Z88.7 Allergy status to serum and vaccine; Z88.8 Allergy status to other drugs, medicaments and biological substances
CPT/HCPCS: 36415; 70450; 71045; 80048; 83735; 83880; 84484; 85025; 93005; 99284

== ENCOUNTER 2023-02-20 07:17 | Emergency (ER) | payer OTHER ==
--- OUTSIDE RECORDS SUMMARY | 2023-02-20 07:21 | XMS REPORT | Continuity of Care Document ---
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 Social History Social Habit Start Date Stop Date Quantity Comments Source History of Cigarette Smoker [facility] tobacco use of Medicine Exposure to Not sure [facility] Kamilla thomas SARS-CoV-2 of Medicine (event) Tobacco use and 2020-06-05 2020-06-05 Never used [facility] [employer] exposure 00:00:00 00:00:00 of Medicine Alcohol intake 2020-06-05 2020-06-05 Current drinker [facility] 00:00:00 00:00:00 of alcohol of Medicine (finding) Tobacco Comment 2011-06-21 2011-06-21 pt. quit 39 yrs. [facility] 00:00:00 00:00:00 ago of Medicine Sex Assigned At [address] [facility] Smoking Status Start Date Stop Date Source Former smoker 2020-06-05 00:00:00 2020-06-05 00:00:00 [facility] Isabel[facility] espinoza of Medicine Medications Ordered Filled Start Stop Current Ordering Indication Dosage Frequency Signature Comments Components Source Medication Medication Date Date Medication? Clinician (SIG) Name Name Pantoprazol 2019-08 Yes Take by [place] [facility] e Sodium 0-08 mouth. Jarrell (PROTONIX) 20:18: of 40 MG PACK 41 Medicin e flunisolide 2019-08 Yes 2{spray Inhale 2 Pavel (NASALIDE) 0-08 } Sprays by [facility]ow[facility]ury 25 MCG/ACT 20:18: nose every o f (0.025%) 41 12 hours. Medici n nasal spray e dicyclomine 2019-08 Yes 20mg Take 20 mg Pavel (BENTYL) 20 0-08 by mouth [facility]ge MG tablet 20:18: every 6 of 41 hours. Medicin e cetirizine, 2019-08 Yes 10mg Take 10 mg [facility] ZYRTEC, 0-08 by mouth Jarrell (ZYRTEC 20:18: once. of ALLERGY) 10 41 Medicin MG tablet e Multiple 2019-08 Yes Take by [facility] Vit[facility]-Mi 0-08 mouth. Colleg e nerals 20:18: of (CENTRUM 41 Medicin SILVER) e TABS Hope-3 2019-08 Yes Take by [facility] Fatty Acids 0-08 mouth. Colleg e (FISH OIL) 20:18: of 1000 MG 41 Medicin CAPS e Aspirin 2019-08 Yes Take by [facility] (ASPIR-81) 0-08 mouth. Jarrell 81 MG TBEC 20:18: of 41 Medicin e diphenhydrA 2019-08 Yes 25mg Take 25 mg [facility] MINE 0-08 by mouth Jarrell (BENADRYL) 20:18: every 6 of 25 MG 41 hours as Medicin tablet needed for e Sleep. ketoconazol 2017-08 Yes [id number] Apply B [facility]or e (NIZORAL) 0-24 topically Col lege 2 % cream 00:00: twice a of 00 day as Medicin needed e valsartan Yes 160mg Take 160 [place] [facility] (DIOVAN) 2-05 mg by Jarrell 160 MG 20:48: mouth of tablet 43 daily. Medicin e torsemide Yes 20mg Take 20 mg [facility] (DEMADEX) 2-05 by mouth Colleg e 20 MG 20:48: daily. of tablet 43 Medicin e diltiazem Yes TAKE ONE [place] or (CARDIZEM 9-27 CAPSULE BY [facility] chowdhury CD) 180 MG 00:00: MOUTH of ER capsule 00 EVERY DAY Medi elizabeth e sildenafil Yes Use as Baylo r citrate 4-18 [facility] (VIAGRA) 00:00: of 100 MG 00 [...] Source Systolic blood 2020-06-05 20:16:00 146 mm[Hg] [facility] pressure Medicine Diastolic blood 2020-06-05 20:16:00 71 mm[Hg] [facility] pressure Medicine Heart rate 2020-06-05 20:16:00 65 /min [facility] Body height 2020-06-05 20:16:00 175.3 cm [facility] Body weight 2020-06-05 20:16:00 102.059 kg [facility] BMI 2020-06-05 20:16:00 33.23 kg/m2 [facility] Procedures This patient has no known procedures. Plan of Care Planned Activity Planned Date Details Comments Source Future Scheduled 2023-04-[address] [facility] Test 00:00:00 (Season Ended) [code Medical Center = Influenza Vaccine (Season Ended)] Future Scheduled 2023-04-[address] [facility] Test 00:00:00 (Season Ended) [code Medical Center = Influenza Vaccine (Season Ended)] Future Scheduled 2022-08-[address] [facility] Test 00:00:00 (12+) [code = [facility] DEPRESSION SCREENING (12+)] Future Scheduled 2022-08-[address] [facility] Test 00:00:00 (12+) [code = Medical Center DEPRESSION SCREENING (12+)] Future Scheduled 2022-08-29 FALLS RISK SCREENING [facility] Test 00:00:00 [code = FALLS RISK Medical C enter SCREENING] Future Scheduled 2022-08-29 FALLS RISK SCREENING [facility] [...] Cessation Counseling and Screening (12+)] Future Scheduled CT TANGENTIAL BIOPSY Ordered: [facility] Test SKIN SINGLE LESION 06/05/2020 of Medici ne [code = 95621] Future Scheduled CT DESTRUC Ordered: [facility] Test PREMALIGNANT, FIRST 06/05/2020 of Medic ine LESION(32531) [code = 79722] Future Scheduled CT DESTRUC Ordered: [facility] Test PREMALIGNANT,2-14 06/05/2020 of Medicin e LESIONS(32000) [code = 76447] Future Scheduled TETANUS SHOT (ADULT) [facility] Test [code = TETANUS SHOT of Medi cine (ADULT)] Future Scheduled BMI FOLLOW UP PLAN [facility] Test [code = BMI FOLLOW of Medici ne UP PLAN] Future Scheduled HEPATITIS C [facility] Test SCREENING [code = of Medicin e HEPATITIS C SCREENING] Future Scheduled ZOSTER VACCINE (1 of [facility] Test 2) [code = ZOSTER of Medicin e VACCINE (1 of 2)] Future Scheduled FALL SCREEN [code = [facility] Test FALL SCREEN] of Medicine Future Scheduled PNEUMOVAX >=65 [facility] Test (PPSV23) [code = of Medicine PNEUMOVAX >=65 (PPSV23)] Future Scheduled MEDICARE AWV [facility] Test (Initial) [code = of Medicin e MEDICARE AWV (Initial)] Future Scheduled FLU VACCINE > 6 [facility] Test MONTHS [code = FLU of Medici ne VACCINE > 6 MONTHS] Encounters Start End Encounter Admission Attending Care Care Encounter Source Date/Time Date/Time Type Type Clinicians Facility Department ID 2020-10-23 2020-10-23 Outpatient [facility] [id number] [facility] 00:00:00 00:00:00 2020-09-26 2020-09-26 Outpatient [facility] [id number] [facility] 00:00:00 00:00:00 2020-06-05 2020-06-05 Office DANDY Soto [id number] [facility] 14:58:48 16:22:22 Visit Stewart AMBULATOR [id number] [employer] Y [id number] [facility] elizabeth 300 e Results This patient has no known results.
[2023-02-20] MEDS ORDERED: NA CHLORIDE 0.9% 1,000 ML ONE (07:45)
[2023-02-20 07:51] LABS: Absolute Lymphocytes (CBC) 1.7 K/uL (0.7-4.9); Hematocrit 47.9 % (39.6-49.0); Lymphocytes % 35.7 % (15.3-44.8); MCV 89.5 fL (80-100); MPV 8.2 fL (7.6-11.3); RBC Red Blood Cell Count 5.35 M/uL (4.33-5.43)
[2023-02-20 07:54] LABS: Protime INR 0.98
--- NOTE | 2023-02-20 08:00 | RAD REPORT ---
EXAM DESCRIPTION: CT - Head Brain Wo Cont - 02/20/2023 7:46 am CLINICAL HISTORY: PAIN Headache, drowsiness COMPARISON: Head Brain Wo Cont dated 02/12/2023; Head Brain Wo Cont dated 10/23/2021 TECHNIQUE: All CT scans are performed using dose optimization technique as appropriate and may inclu de automated exposure control or mA/KV adjustment according to patient size. FINDINGS: No intracranial hemorrhage, hydrocephalus or extra-axial fluid collection.Moderate general ized brain atrophy.No areas of brain edema or evidence of midline shift. The paranasal sinuses and mastoids are clear. The calvarium is intact. IMPRESSION: No acute intracranial abnormality.
[2023-02-20 08:11] LABS: Bilirubin Direct 0.2 mg/dL (0-0.2); Bilirubin Indirect, Calculated 0.4 mg/dL (0.2-0.8); Bilirubin Total 0.6 mg/dL (0.2-1.0); Magnesium 2.2 mg/dL (1.6-2.4); Potassium 3.9 mEq/L (3.5-5.1); Protein, Total 7.4 g/dL (6.4-8.2)
[2023-02-20 08:13] LABS: SARS-CoV-2 Antigen Rapid Res Negative (Negative)
--- NOTE | 2023-02-20 08:29 | RAD REPORT ---
EXAM DESCRIPTION: RAD - Chest Single View - 02/20/2023 8:21 am CLINICAL HISTORY: COUGH Chest pain. COMPARISON: Chest Single View dated 02/12/2023; Chest Single View dated 07/08/2022; Chest Single View dated 10/23/2021; Chest Single View dated 11/08/2020 FINDINGS: Portable technique limits examination quality. The lungs are grossly clear. The heart is upper limit of normal in size. No displaced fractures.
--- NOTE | 2023-02-20 09:12 | ER ---
Nurse's Notes [facility] Name: Victor M Del Toro Age: 82 yrs Sex: Male : 1940 Arrival Date: 02/20/2023 Time: 07:17 Bed 4 Private MD: Diagnosis: Palpitations;Bradycardia, unspecified;Unspecified kidney failure-chronic / insufficent Presentation: 02/20 07:22 Chief complaint: Patient states: "I was just getting ready for faith when I got all aa5 sweaty and I felt my heart flattering". Pt denies chest pain. Pt reports Dr. Robbins (cardiology) changed his "high blood pressure medicine to something else on Tuesday". 07:22 Coronavirus screen: At this time, the client does not indicate any symptoms associated aa5 with coronavirus-19. Ebola Screen: Patient denies travel to an Ebola-affected area in the 21 days before illness onset. Initial Sepsis Screen: Does the patient meet any 2 criteria? No. Patient's initial sepsis screen is negative. Does the patient have a suspected source of infection? No. Patient's initial sepsis screen is negative. Risk Assessment: Do you want to hurt yourself or someone else? Patient reports no desire to harm self or others. Onset of symptoms was February 20, 2023. 07:22 Acuity: EDY 2 aa5 07:22 Method Of Arrival: Ambulatory aa5 Triage Assessment: 10:00 Headache History: Denies prior headaches. Pain: Pain currently is 0 out of 10 on a pain ll1 scale. Also complains of no other associated symptoms. 10:00 Pain: Pain began 4 hours ago. ll1 Historical: - Allergies: 07:26 Tetanus Vaccines and Toxoid-horse serum; ll1 - PMHx: 07:26 High Cholesterol; Hypertension; seasonal allergies; ll1 - Immunization history:: Adult Immunizations unknown. - Social history:: Smoking status: Patient/guardian denies using tobacco. - Family history:: not pertinent. Screenin:03 [facility] ED Fall Risk Assessment (Adult) History of falling in the last 3 months, iw including since admission. Abuse screen: Denies threats or abuse. Denies injuries from another. Nutritional screening: No deficits noted. Tuberculosis screening: No symptoms or risk factors identified. Assessment: 07:50 General: Appears in no apparent distress. Behavior is calm, cooperative, appropriate ll1 for age. Pain: Denies pain. Neuro: Reports headache numbness. Cardiovascular: Reports palpitations, sweating. 07:54 Reassessment: No changes from previously documented assessment. Patient and/or family ll1 updated on plan of care and expected duration. Pain level reassessed. 08:19 Reassessment: No changes from previously documented assessment. Patient and/or family ll1 updated on plan of care and expected duration. Pain level reassessed. Patient is alert, oriented x 3, equal unlabored respirations, skin warm/dry/pink. 08:41 Reassessment: No changes from previously documented assessment. Patient and/or family ll1 updated on plan of care and expected duration. Pain level reassessed. Patient is alert, oriented x 3, equal unlabored respirations, skin warm/dry/pink. 08:55 Reassessment: No changes from previously documented assessment. Patient and/or family ll1 updated on plan of care and expected duration. Pain level reassessed. Patient is alert, oriented x 3, equal unlabored respirations, skin warm/dry/pink. 09:10 Reassessment: No changes from previously documented assessment. Patient and/or family ll1 updated on plan of care and expected duration. Pain level reassessed. Patient is alert, oriented x 3, equal unlabored respirations, skin warm/dry/pink. 09:30 Reassessment: discharge pending repeat EKG, HR 39-41 , sinus mary. iw 10:00 Reassessment: No changes from previously documented assessment. Patient and/or family ll1 updated on plan of care and expected duration. Pain level reassessed. Patient is alert, oriented x 3, equal unlabored respirations, skin warm/dry/pink. Vital Signs: 07:22 BP 161 / 77; Pulse 64; Resp 18 S; Temp 98.8(O); Pulse Ox 94% on R/A; Weight 117.03 kg aa5 (R); Height 5 ft. 9 in. (R); 08:20 BP 141 / 68; Pulse 48; Resp 12; Pulse Ox 95% on R/A; Pain 0/10; ll1 09:00 BP 132 / 65 Supine; Pulse 43; ll1 09:03 BP 161 / 65 Sitting; Pulse 45; ll1 09:06 BP 149 / 62 Standing; Pulse 49; ll1 09:31 BP 153 / 68; Pulse 41; Resp 16; Pulse Ox 96% on R/A; iw 10:00 Pulse 55; Resp 18; Pulse Ox 96% ; Pain 0/10; ll1 07:22 Body Mass Index 38.10 (117.03 kg, 175.26 cm) aa5 08:20 Pain Scale: Adult ll1 10:00 Pain Scale: Adult ll1 [place] Coma Score: 09:12 Eye Response: spontaneous(4). Motor Response: obeys commands(6). Verbal Response: karolina oriented(5). Total: 15. ED Course: 07:20 Patient arrived in ED. im 07:24 Leonidas Chapman MD is Attending Physician. karolina 07:26 Arm band placed on Patient placed in an exam room, on a stretcher. ll1 07:31 EKG done, by ED staff, reviewed by Leonidas Chapman MD. aa5 07:36 Triage completed. aa5 07:38 Inserted saline lock: 22 gauge in right antecubital area, using aseptic technique. ll1 Blood collected. 07:48 CT Head Brain wo Cont In Process Unspecified. EDMS 07:54 Poonam Emanuel, RN is Primary Nurse. ll1 07:54 Flu Sent. ll1 07:54 SARS RAPID Sent. ll1 08:20 Patient has correct armband on for positive identification. Bed in low position. Call ll1 light in reach. Side rails up X 1. Client placed on continuous cardiac and pulse oximetry monitoring. NIBP monitoring applied. roll picker on. 08:23 XRAY Chest (1 view) In Process Unspecified. EDMS 09:11 Lamonte Robbins MD is Referral Physician. karolina 09:58 IV discontinued, intact, bleeding controlled, No redness/swelling at site. Pressure ll1 dressing applied. 09:59 No provider procedures requiring assistance completed. ll1 Administered Medications: 07:54 Drug: NS 0.9% IV 500 ml Route: IV; Rate: bolus; Site: left antecubital; ll1 10:01 Follow up: Response: (VIS) Vaccine information sheet provided today. Questions and/or ll1 concerns addressed. VIS edition date: Apr 03, 2021.; IV Status: Completed infusion; IV Intake: 600ml 08:18 Not Given (Duplicate Order): NS 0.9% IV 1000 ml IV at 125 ml/hr continuous ll1 Medication: 08:20 VIS not applicable for this client. ll1 Intake: 10:01 IV: 600ml; Total: 600ml. ll1 Outcome: 09:11 Discharge ordered by . karolina 10:00 Discharged to home ambulatory. ll1 10:00 Condition: stable 10:00 Discharge instructions given to patient, Instructed on discharge instructions, follow up and referral plans. Demonstrated understanding of instructions, follow-up care. 10:01 Patient left the ED. ll1 Signatures: Dispatcher [employer] EDPR Leonidas Chapman MD MD cha Williams, Irene, RN RN Kelley Preston RN RN aa5 Poonam Emanuel RN RN ll1 Michelle Pichardo Corrections: (The following items were deleted from the chart) 09:10 09:09 BP 132 / 65 Supine; Pulse 43bpm; ll1 ll1 09:10 09:09 BP 161 / 65 Sitting; Pulse 45bpm; ll1 ll1
--- NOTE | 2023-02-20 09:12 | EDPHYS ---
Physician Documentation [facility] Name: Victor M Del Toro Age: 82 yrs Sex: Male : 1940 Arrival Date: 02/20/2023 Time: 07:17 Bed 4 Private MD: ED Physician Leonidas Chapman HPI: 02/20 08:42 This 82 yrs old Male presents to ER via Ambulatory with complaints of karolina Headache, sweating. 08:42 The patient complains of pain to the forehead. The patient describes the headache as karolina aching. Onset: The symptoms/episode began/occurred this morning. 08:42 The patient presents with a history of irregular heart beat. Context: The symptoms karolina occur with light activity. Onset: The symptoms/episode began/occurred just prior to arrival. Duration: The patient or guardian reports multiple episodes, that wax and wane, with no pattern. Modifying factors: The symptoms are aggravated by nothing. The symptoms are alleviated by lying down. Severity of symptoms: At its worst the pain was mild, in the emergency department the pain is unchanged. Historical: - Allergies: 07:26 Tetanus Vaccines and Toxoid-horse serum; ll1 - PMHx: 07:26 High Cholesterol; Hypertension; seasonal allergies; ll1 - Immunization history:: Adult Immunizations unknown. - Social history:: Smoking status: Patient/guardian denies using tobacco. - Family history:: not pertinent. ROS: 08:42 Constitutional: Negative for fever, chills, and weight loss, Eyes: Negative for injury, karolina pain, redness, and discharge, ENT: Negative for injury, pain, and discharge, Neck: Negative for injury, pain, and swelling, Respiratory: Negative for shortness of breath, cough, wheezing, and pleuritic chest pain, Abdomen/GI: Negative for abdominal pain, nausea, vomiting, diarrhea, and constipation, Back: Negative for injury and pain, : Negative for injury, bleeding, discharge, and swelling, MS/Extremity: Negative for injury and deformity, Skin: Negative for injury, rash, and discoloration, Neuro: Negative for headache, weakness, numbness, tingling, and seizure, Psych: Negative for depression, anxiety, suicide ideation, homicidal ideation, and hallucinations, Allergy/Immunology: Negative for hives, rash, and allergies, Endocrine: Negative for neck swelling, polydipsia, polyuria, polyphagia, and marked weight changes, Hematologic/Lymphatic: Negative for swollen nodes, abnormal bleeding, and unusual bruising. 08:42 Cardiovascular: Positive for palpitations. Exam: 08:42 Constitutional: This is a well developed, well nourished patient who is awake, alert, karolina and in no acute distress. Head/Face: Normocephalic, atraumatic. Eyes: Pupils equal round and reactive to light, extra-ocular motions intact. Lids and lashes normal. Conjunctiva and sclera are non-icteric and not injected. Cornea within normal limits. Periorbital areas with no swelling, redness, or edema. ENT: Nares patent. No nasal discharge, no septal abnormalities noted. Tympanic membranes are normal and external auditory canals are clear. Oropharynx with no redness, swelling, or masses, exudates, or evidence of obstruction, uvula midline. Mucous membranes moist. Neck: Trachea midline, no thyromegaly or masses palpated, and no cervical lymphadenopathy. Supple, full range of motion without nuchal rigidity, or vertebral point tenderness. No Meningismus. Chest/axilla: Normal chest wall appearance and motion. Nontender with no deformity. No lesions are appreciated. Cardiovascular: Regular rate and rhythm with a normal S1 and S2. No gallops, murmurs, or rubs. Normal PMI, no JVD. No pulse deficits. Respiratory: Lungs have equal breath sounds bilaterally, clear to auscultation and percussion. No rales, rhonchi or wheezes noted. No increased work of breathing, no retractions or nasal flaring. Abdomen/GI: Soft, non-tender, with normal bowel sounds. No distension or tympany. No guarding or rebound. No evidence of tenderness throughout. Back: No spinal tenderness. No costovertebral tenderness. Full range of motion. Male : Normal genitalia with no discharge or lesions. Skin: Warm, dry with normal turgor. Normal color with no rashes, no lesions, and no evidence of cellulitis. MS/ Extremity: Pulses equal, no cyanosis. Neurovascular intact. Full, normal range of motion. Neuro: Awake and alert, GCS 15, oriented to person, place, time, and situation. Cranial nerves II-XII grossly intact. Motor strength 5/5 in all extremities. Sensory grossly intact. Cerebellar exam normal. Normal gait. Psych: Awake, alert, with orientation to person, place and time. Behavior, mood, and affect are within normal limits. 08:42 ECG was reviewed by the Attending Physician. 08:48 Cardiovascular: Rate: bradycardic, actual rate is 50 bpm, Rhythm: regular, Pulses: karolina Heart sounds: normal, Edema: is not appreciated, JVD: is not appreciated. 08:48 Musculoskeletal/extremity: DVT Exam: No signs of deep vein thrombosis. no pain, no swelling, no tenderness, negative Homans' sign noted on exam, no appreciated bluish discoloration, no erythema, no increased warmth. 09:34 ECG was reviewed by the Attending Physician. [facility] Vital Signs: 07:22 BP 161 / 77; Pulse 64; Resp 18 S; Temp 98.8(O); Pulse Ox 94% on R/A; Weight 117.03 kg aa5 (R); Height 5 ft. 9 in. (R); 08:20 BP 141 / 68; Pulse 48; Resp 12; Pulse Ox 95% on R/A; Pain 0/10; ll1 09:00 BP 132 / 65 Supine; Pulse 43; ll1 09:03 BP 161 / 65 Sitting; Pulse 45; ll1 09:06 BP 149 / 62 Standing; Pulse 49; ll1 09:31 BP 153 / 68; Pulse 41; Resp 16; Pulse Ox 96% on R/A; iw 10:00 Pulse 55; Resp 18; Pulse Ox 96% ; Pain 0/10; ll1 07:22 Body Mass Index 38.10 (117.03 kg, 175.26 cm) aa5 08:20 Pain Scale: Adult ll1 10:00 Pain Scale: Adult ll1 Bieber Coma Score: 09:12 Eye Response: spontaneous(4). Motor Response: obeys commands(6). Verbal Response: karolina oriented(5). Total: 15. MDM: 07:24 Patient medically screened. [facility] 09:12 Data reviewed: vital signs, nurses notes, lab test result(s), EKG, radiologic studies, karolina plain films. Consideration of Admission/Observation Escalation of care including admission/observation considered. I considered the following discharge prescriptions or medication management in the emergency department Medications were administered in the Emergency Department. See MAR. Independent interpretation of the following test(s) in the Emergency Department EKG: See my EKG interpretation above. Test considered but Not performed: CT: NO CT STONE. 09:14 Care significantly affected by the following chronic conditions: Hypertension, Obesity, karolina HIGH CHOLESTEROL. Counseling: I had a detailed discussion with the patient and/or guardian regarding: the historical points, exam findings, and any diagnostic results supporting the discharge/admit diagnosis, lab results, radiology results, the need for outpatient follow up, for definitive care, a practice coordinator, a family practitioner. 09:42 ED course: DR COOPER , STOP NEBIVOLOL TOO, WELL DITIAZAM. 02/20 07:27 Order name: Basic Metabolic Panel; Complete Time: 08:41 02/20 07:27 Order name: CBC with Diff; Complete Time: 08:41 02/20 07:27 Order name: LFT's; Complete Time: 08:41 02/20 07:27 Order name: Magnesium; Complete Time: 08:41 02/20 07:27 Order name: NT PRO-BNP; Complete Time: 08:41 02/20 07:27 Order name: PT-INR; Complete Time: 08:41 02/20 07:27 Order name: Troponin HS; Complete Time: 08:41 02/20 07:27 Order name: Lipase; Complete Time: 08:41 02/20 07:27 Order name: Urinalysis w/ reflexes 02/20 07:27 Order name: SARS RAPID; Complete Time: 08:41 02/20 07:27 Order name: Flu; Complete Time: 08:41 02/20 07:32 Order name: TSH; Complete Time: 08:41 aa5 02/20 07:27 Order name: XRAY Chest (1 view); Complete Time: 08:41 02/20 07:27 Order name: CT Head Brain wo Cont; Complete Time: 08:41 02/20 07:27 Order name: EKG; Complete Time: 07:28 02/20 09:47 Order name: EKG; Complete Time: 09:48 02/20 07:27 Order name: Cardiac monitoring; Complete Time: 07:37 02/20 07:27 Order name: EKG - Nurse/Tech; Complete Time: 07:37 02/20 07:27 Order name: IV Saline Lock; Complete Time: 07:37 02/20 07:27 Order name: Labs collected and sent; Complete Time: 07:37 [facility] 02/20 07:27 Order name: O2 Per Protocol; Complete Time: 07:37 [facility] 02/20 07:27 Order name: O2 Sat Monitoring; Complete Time: 07:37 [facility] 02/20 08:46 Order name: PO challenge; Complete Time: 08:50 [facility] 02/20 08:46 Order name: Orthostatic Blood Pressure; Complete Time: 08:55 [facility] 02/20 09:10 Order name: Misc. Order: GET UA BEFORE DC; Complete Time: 09:11 [facility] 02/20 09:45 Order name: Misc. Order: WALK PATIENT , SEE THAT HR INCREASES; Complete Time: 09:58 [facility] 02/20 09:47 Order name: EKG - Nurse/Tech; Complete Time: 09:48 [facility] EC:42 Rate is 61 beats/min. Rhythm is regular. QRS Roy is Normal. DC interval is normal. QRS karolina interval is normal. QT interval is normal. No Q waves. T waves are Normal. No ST changes noted. Clinical impression: Normal ECG. Interpreted by me. Reviewed by me. 09:34 Rate is 39 beats/min. Rhythm is regular. QRS Roy is Normal. DC interval is normal. QRS karolina interval is normal. QT interval is normal. No Q waves. T waves are Normal. No ST changes noted. Clinical impression: Sinus bradycardia and No evidence of ischemia. Interpreted by me. Reviewed by me. Administered Medications: 07:54 Drug: NS 0.9% IV 500 ml Route: IV; Rate: bolus; Site: left antecubital; ll1 10:01 Follow up: Response: (VIS) Vaccine information sheet provided today. Questions and/or ll1 concerns addressed. VIS edition date: Apr 03, 2021.; IV Status: Completed infusion; IV Intake: 600ml 08:18 Not Given (Duplicate Order): NS 0.9% IV 1000 ml IV at 125 ml/hr continuous ll1 Disposition Summary: 02/20/23 09:11 Discharge Ordered Location: Home karolina Problem: new karolina Symptoms: have improved karolina Condition: Stable karolina Diagnosis - Palpitations karolina - Bradycardia, unspecified karolina - Unspecified kidney failure - chronic / insufficent karolina Followup: karolina - With: Private Physician - When: 2 - 3 days - Reason: Recheck today's complaints, Continuance of care, Re-evaluation by your physician Followup: karolina - With: - When: 2 - 3 days - Reason: Recheck today's complaints, Continuance of care, Re-evaluation by your physician Discharge Instructions: - Discharge Summary Sheet karolina - Bradycardia, Adult karolina - Palpitations karolina - Aspirin and Your Heart karolina - Palpitations, [id number] karolina - Chronic Kidney Disease, Adult, [id number] karolina - Chronic Kidney Disease, Adult karolina Forms: - Medication Reconciliation Form karolina - Thank You Letter karolina - Antibiotic Education karolina - Prescription Opioid Use karolina Signatures: Dispatcher [employer] EDLeonidas Adames MD MD cha Calderon, Audri RN RN aa5 Poonam Emanuel RN RN ll1
[2023-02-20 09:23] LABS: Urine Bilirubin NEGATIVE (Negative); Urine Blood Negative (Negative); Urine Clarity Clear (Clear); Urine Color Light-Yellow (Yellow); Urine Glucose NEGATIVE (Negative)
[2023-02-20 09:24] LABS: Urine Protein NEGATIVE (Negative); Urine Urobilinogen Normal (Normal); Urine pH 7.5 (5.0-7.0)
[2023-02-20 10:19] VITALS: TEMP 98.8
[2023-02-20 10:29] VITALS: BP 153/68; O2SAT 96
--- NOTE | 2023-02-21 17:13 | EKG ---
Test Date: 2023-02-20 Test Time: 09:44:29 Grade Checker: AKIKO MEASUREMENT RESULTS: Intervals: Rate: 43 MO: 182 QRSD: 98 QT: 470 QTc: 397 [place]: P: 55 MO: 182 QRS: 16 T: 33 INTERPRETIVE STATEMENTS: Marked sinus bradycardia with occasional premature ventricular complexes Abnormal ECG Compared to ECG 02/20/2023 09:29:03 Ventricular premature complex(es) now present Electronically Signed On 02-21-23 17:10:51 CDT by Lamonte Robbins
--- NOTE | 2023-02-21 17:13 | EKG ---
Test Date: 2023-02-20 Test Time: 09:29:03 Continuous Process [employer]: AKIKO MEASUREMENT RESULTS: Intervals: Rate: 39 SD: 138 QRSD: 98 QT: 468 QTc: 376 [place]: P: 25 SD: 138 QRS: 16 T: 29 INTERPRETIVE STATEMENTS: Marked sinus bradycardia Abnormal ECG Compared to ECG 02/20/2023 07:31:01 Sinus rhythm no longer present Electronically Signed On 02-21-23 17:10:57 CDT by Lamonte Robbins
--- NOTE | 2023-02-21 17:14 | EKG ---
Test Date: 2023-02-20 Test Time: 07:31:01 Manager Hotel: AKIKO MEASUREMENT RESULTS: Intervals: Rate: 61 NM: 198 QRSD: 84 QT: 408 QTc: 410 [place]: P: 45 NM: 198 QRS: 10 T: 30 INTERPRETIVE STATEMENTS: Normal sinus rhythm Normal ECG Compared to ECG 02/12/2023 08:25:05 Sinus bradycardia no longer present T-wave abnormality no longer present Possible ischemia no longer present Electronically Signed On 02-21-23 17:11:05 CDT by Lamonte Robbins
== END 2023-02-20 10:01 | disposition home or self-care (01) ==
LOC: ER 07:17
DX: R00.2 Palpitations (principal); R00.1 Bradycardia, unspecified; N18.9 Chronic kidney disease, unspecified; Z20.822 Contact with and (suspected) exposure to COVID-19; R51.9 Headache, unspecified; R61 Generalized hyperhidrosis; I10 Essential (primary) hypertension; E78.00 Pure hypercholesterolemia, unspecified; J30.2 Other seasonal allergic rhinitis
CPT/HCPCS: 96361; 93005 ×3; 85025; 80048; 36415; 83735; 85610; 80076; 84443; 81003; 84484; 83690; 83880; 87804 ×2; 70450; 71045; 96360; 99285; 87811; J7030